=== PATIENT | female | born 1990 | race Caucasian/White ===

== ENCOUNTER 2022-08-20 12:12 | Emergency (ER) | payer MEDICAID, SELFPAY ==
[2022-08-20 12:13] VITALS: BP 108/69; PULSE 89; RESP 14; TEMP 36.8; O2SAT 98; BMI 23.1
--- NOTE | 2022-08-20 12:33 | EKG12_ITS ---
Test Reason : PALPS Blood Pressure : / mmHG Vent. Rate : 084 BPM Atrial Rate : 084 BPM P-R Int : 130 ms QRS Dur : 084 ms QT Int : 366 ms P-R-T Axes : 014 022 019 degrees QTc Int : 432 ms Normal sinus rhythm Normal ECG Confirmed by JUANCARLOS POOLE, MARKO ([id number]), newspaper editor DARWIN CARREON ([id number]) on 08/22/2022 8:36:15 AM Referred By: Confirmed By:MARKO BAUER MD
[2022-08-20 12:52] VITALS: O2SAT 97
[2022-08-20 12:59] LABS: Bacteria 0 SEEN /hpf (None Seen); Mucous, Urine 0 SEEN /hpf (<or=2+); Red Blood Cells-Urine 0 SEEN /hpf (0-5); Squamous Epithelial Cells - UA 0 SEEN /hpf (5-10)
[2022-08-20 13:00] LABS: Absolute Lymphocyte Count 1.91 X10^3/uL (0.83-4.51); Absolute Neutrophil Count 8.6 X10^3/uL (2.0-7.7); Basophil# 0.03 X10^3/uL; Basophil% 0.3 % (0-1); Color, Urine Yellow (Yellow); Eosinophil# 0.06 X10^3/uL; Eosinophils% 0.5 % (0-5); Glucose, Dipstick Normal (Normal); Hematocrit 31.9 % (37-47); Hemoglobin 11.1 g/dL (12.0-15.0); Ketone-Dipstick Negative (Negative); Leukocyte Esterase-Dipstick 25 /ul (Negative); Lymphocyte # 1.91 X10^3/ul (0.83-4.51); Lymphocyte % 16.6 % (19-41); Mean Corp Hgb Conc 34.8 g/dL (32-36); Mean Corpuscular Hgb 32.8 pg (27.0-32.0); Mean Corpuscular Volume 94.4 fL (81-99); Monocyte# 0.74 X10^3/uL; Monocyte% 6.4 % (0-10); NRBC Flagged by Analyzer 0 % (0-5); Neutrophil # 8.55 X10^3/uL (2.7-7.7); Neutrophil % 74.2 % (47-70); Nitrite-Dipstick Negative (Negative); Occult Blood-Urine Negative /ul (Negative); Platelet Count 252 K/mm3 (150-450); Protein-Dipstick Negative (Negative); RBC Distribution Width CV 13.2 % (11.6-14.6); RBC Distribution Width SD 45.5 fl (35.1-43.9); Red Blood Count 3.38 M/mm3 (4.2-5.4); Urine Bilirubin Dipstick Negative (Negative); Urine Clarity Clear (Clear); Urine Urobilinogen Normal (Normal); Urine pH 6.5 (5.0 - 8.0); White Blood Count 11.5 K/mm3 (4.4-11.0)
--- NOTE | 2022-08-20 13:05 | RAD_ITS ---
STUDY: X-RAY CHEST REASON FOR EXAM: Female, 32 years old. Sob TECHNIQUE: Single AP portable view of the chest. COMPARISON: None. FINDINGS: Allowing formation of shadows is a hazy appearance of the lung bases. There is no demonstrated pleural abnormality. Normal size heart. Normal mediastinum and renee. Normal visualized pulmonary arteries. Normal visualized aortic arch and descending thoracic aorta. Normal visualized thoracic spine. Normal visualized ribs, clavicles, and shoulders. There is no demonstrated abnormality of the visualized soft tissue structures of the upper abdomen. RAD/Chest 1 View (Portable) IMPRESSION: Probable summation of shadows in both lung bases with breast tissue. Could consider PA and lateral film of the chest if appropriate. Electronically Signed: Tala Camacho MD at 14:13 EDT ,
[2022-08-20 13:09] LABS: White Blood Cells 0-5 SEEN /hpf (0-5)
[2022-08-20 13:18] LABS: ALB/GLOB Ratio 0.8 RATIO (0.9-2.4); AST(SGOT) 13 U/L (15-37); Alanine Aminotransfer ALT/SGPT 17 U/L (13-56); Albumin, Serum 2.9 g/dL (3.2-5.0); Alkaline Phosphatase 80 U/L (45-117); Anion Gap 7 (5-15); BUN 8 mg/dL (7-18); BUN/Creat Ratio 17.2 RATIO (10-20); Calcium,Total 9.3 mg/dL (8.5-10.1); Chloride 106 mmol/L (98-107); Creatinine, Serum 0.46 mg/dL (0.55-1.02); EST Glomerular Filtration Rate 167 mL/min (>60); Est Glom Filt Rate - Afr Amer 203 mL/min (>60); Estimated Creatinine Clearance 160.91 ml/min; Globulin 3.8 g/dL (2.2-4.2); Glucose 94 mg/dL (74-106); Potassium 3.7 mmol/L (3.5-5.1); Protein, Total 6.7 g/dL (6.4-8.2); Sodium Level 136 mmol/L (136-145); Troponin-I HS 4 pg/mL (3.0-54.0)
--- NOTE | 2022-08-20 13:44 | EDS_ITS ---
HPI History of Present Illness Chief Complaint: Shortness of Breath Narrative Narrative: Patient presents with cough congestion rhinorrhea for the past few days, she feels like she has some palpitations from time to time. She has not noticed a fever. She does not have any pleuritic component. No back pain or tearing sensation, no lower extremity edema or calf pain. She is 20 weeks . She she has movement, she has no urinary symptoms. PFSH PFSH Medical History no medical history Allergy/AdvReac Type Severity Reaction Status Date / Time No Known Allergies Allergy Verified 08/20/22 12:13 Surgical History no surgical history Social History Smoking Status: Never smoker ROS ROS ED ROS Narrative Past medical history: Reviewed Medications: Reviewed Social history: Noncontributory Review of systems: All systems negative except as indicated General: No fever Eyes: No visual changes ENT: Upper airway congestion and rhinorrhea as in HPI Neck: No neck pain Cardiovascular: No chest pain. Some palpitations intermittently. Respiratory: No cough she does not have a difficulty breathing she tells me sometimes it is hard to catch her breath but at this time she has no dyspnea, when she exerts herself it is no worse. Gastrointestinal: No abdominal pain, nausea vomiting or diarrhea Genitourinary: No dysuria Musculoskeletal: Denies myalgias no difficulty with ambulation Skin: No rash Neurological: No memory loss, confusion or any focal weakness Psych: No recent behavioral changes Hematologic: No easy bleeding or easy bruising EXAM Physical Exam Narrative Exam Narrative: Physical exam General: Well nourished, Well developed, No Acute Distress Head: Normocephalic, Atraumatic Eyes: Conjunctiva not pale ENT: Moist mucous membranes. There is rhinorrhea and upper airway congestion. Normal posterior oropharynx. Neck: Supple, Nontender, No lymphadenopathy Cardiovascular: Regular rate, Regular rhythm Respiratory: No distress, CTA bilaterally Abdomen: Soft, gravid to about the umbilicus. Nontender Back: Nontender, Normal Inspection. Negative for: CVA tenderness Extremities: Nontender, No edema Skin: Normal color, No rash Neurological: Alert, Normal Strength, Normal Sensation Psychological: Normal affect Const Vital Signs: 08/20/22 12:13 08/20/22 12:52 Temperature 98.2 F Temperature Source Temporal Pulse Rate 89 Respiratory Rate 14 Respiratory Effort Normal Non-Labored Short of Breath Respiratory Depth Normal Respiratory Pattern Normal Blood Pressure 108/69 Blood Pressure Mean 82 Pulse Ox 98 Oxygen Delivery Method Room Air Room Air [facility] Lab Data Labs: Laboratory Results - last 24 hr 08/20/22 08/20/22 08/20/22 12:45 12:45 12:45 WBC 11.5 H RBC 3.38 L Hgb 11.1 L Hct 31.9 L MCV 94.4 MCH 32.8 H MCHC 34.8 RDW Std Deviation 45.5 H RDW Coeff of Bob 13.2 Plt Count 252 MPV 10.0 Immature Gran % (Auto) 2.000 H Neut % (Auto) 74.2 H Lymph % (Auto) 16.6 L [place] % (Auto) 6.4 Eos % (Auto) 0.5 Baso % (Auto) 0.3 Absolute Neuts (auto) 8.6 H Absolute Lymphs (auto) 1.91 Nucleated RBC % 0 Sodium 136 Potassium 3.7 Chloride 106 Carbon Dioxide 23.0 Anion Gap 7 BUN 8 Creatinine 0.46 L Estim Creat Clear Calc 160.91 Est GFR (MDRD) Af Amer 203 Est GFR (MDRD) Non-Af 167 BUN/Creatinine Ratio 17.2 Glucose 94 Calcium 9.3 Total Bilirubin 0.10 L AST 13 L ALT 17 Alkaline Phosphatase 80 Troponin I High Sens 4 Total Protein 6.7 Albumin 2.9 L Globulin 3.8 Albumin/Globulin Ratio 0.8 L Urine Color Yellow Urine Clarity Clear Urine pH 6.5 Ur Specific [place] 1.010 Urine Protein Negative Urine Glucose (UA) Normal Urine Ketones Negative Urine Occult Blood Negative Urine Nitrite Negative Urine Bilirubin Negative Urine Urobilinogen Normal Ur Leukocyte Esterase 25 H Urine RBC 0 SEEN Urine WBC 0-5 SEEN Ur Squamous Epith Cells 0 SEEN Urine Bacteria 0 SEEN Urine Mucus 0 SEEN Radiography Diagnostic Testing: Chest x-ray 1 view interpreted by me as negative EKG Initial EKG: Comments: Normal sinus rhythm with a rate of 84. Normal NM and QTc intervals. No ischemic changes. Interpreted by emergency Dr. Treatment and Re-Evaluation Narrative: Patient's work-up is unremarkable. She appears well she has no signs or symptoms of thromboembolic disease troponins negative I believe she is stable for discharge. If any changes she is to return, she likely has an upper respiratory infection but her COVID was negative. Discharge Plan Triage Chief Complaint: Shortness of Breath ED Provider: Leander Duckworth Dx/Rx/DC Orders Clinical Impression: Acute upper respiratory infection, Cough, Palpitation, Second trimester p regnancy Instructions: ED URI, Viral, No Abx (Adult) Primary Care Provider: Care Physician,No Primary Referrals: Mini Frazier DO [Med Staff - Multimedia Manager] - 3-5 Days Care Physician,No Primary [Primary Care Provider] - Disposition Disposition: Home, Self Care
[2022-08-20 13:52] VITALS: PULSE 84
== END 2022-08-20 13:52 | disposition home or self-care (01) ==
PROVIDERS: Emergency Provider Emergency Medicine; Visit Provider Emergency Medicine
DX: O99.512 Diseases of the respiratory system complicating pregnancy, second trimester (principal); R00.2 Palpitations; J06.9 Acute upper respiratory infection, unspecified; Z3A.20 20 weeks gestation of pregnancy
CPT/HCPCS: 71045; 80053; 81001; 84484; 85025; 87811; 93005; 99283; A4216

== ENCOUNTER 2022-11-10 18:05 | Outpatient (CLI) | payer MEDICAID, SELFPAY ==
[2022-11-10 18:17] VITALS: BMI 27.1
[2022-11-10 18:19] VITALS: PULSE 97; O2SAT 97
[2022-11-10 18:24] VITALS: BP 107/64; PULSE 105; TEMP 36.7
[2022-11-10 18:38] LABS: Color, Urine Yellow (Yellow); Glucose, Dipstick Normal (Normal); Ketone-Dipstick Negative (Negative); Leukocyte Esterase-Dipstick Negative /ul (Negative); Nitrite-Dipstick Negative (Negative); Occult Blood-Urine Negative /ul (Negative); Protein-Dipstick Negative (Negative); Urine Bilirubin Dipstick Negative (Negative); Urine Clarity Clear (Clear); Urine Urobilinogen Normal (Normal); Urine pH 6.5 (5.0 - 8.0)
[2022-11-10 18:40] VITALS: BP 106/59; PULSE 96
[2022-11-10 18:45] LABS: Hematocrit 29.3 % (37-47); Hemoglobin 10.5 g/dL (12.0-15.0); Mean Corp Hgb Conc 35.8 g/dL (32-36); Mean Corpuscular Hgb 33.7 pg (27.0-32.0); Mean Corpuscular Volume 93.9 fL (81-99); Mean Platelet Vol. 9.9 fl (6.2-12.0); Platelet Count 254 K/mm3 (150-450); RBC Distribution Width CV 13.3 % (11.6-14.6); RBC Distribution Width SD 45.5 fl (35.1-43.9); Red Blood Count 3.12 M/mm3 (4.2-5.4); White Blood Count 12.5 K/mm3 (4.4-11.0)
[2022-11-10] MEDS: DiphenhydrAMINE 25 MG Capsule PO (18:48)
[2022-11-10] MEDS: Metoclopramide 5 MG TABLET PO (18:48)
[2022-11-10 18:51] LABS: AST(SGOT) 10 U/L (15-37); Alanine Aminotransfer ALT/SGPT 13 U/L (13-56); Creatinine, Serum 0.47 mg/dL (0.55-1.02); EST Glomerular Filtration Rate 164 mL/min (>60); Est Glom Filt Rate - Afr Amer 199 mL/min (>60); Estimated Creatinine Clearance 157.49 ml/min; Uric Acid 3.5 mg/dL (2.6-6.0)
--- NOTE | 2022-11-10 18:53 | OB.TRI.NOTE ---
HPI - General HPI Narrative NISHA FISHER, is a 32 F at 32.6 weeks gestation who presents to triage with headache. She describes headache that starts in front and wraps around to back lower head since yesterday. She has taken Tylenol PO x 2 with no relief. Denies vision changes, swelling, or RUQ pain. Maternal Data Information ROLF Calculator Estimated Delivery Date Method Current WG Current Estimate 12/30/22 Manual 32w 6d PFSH PFSH Home Medications 1 tab PO/SL DAILY 11/10/22 [History Last Taken 11/09/22 21:00] iron 325 mg PO/SL QODAY 11/10/22 [History Last Taken 11/09/22 21:00] Allergy/AdvReac Type Severity Reaction Status Date / Time No Known Allergies Allergy Verified 11/10/22 18:25 Social History Smoking Status: Never smoker ROS Eyes Eyes: Denies blurry vision Cardiovascular Cardiovascular: Reports none; Denies chest pain at rest, chest pain with activity or dizziness Respiratory/Chest Respiratory/Chest: Denies cough or dyspnea Gastrointestinal Gastrointestinal: Reports none and other; Denies diarrhea or vomiting Genitourinary Genitourinary: Denies dysuria Musculoskeletal Musculoskeletal: Reports none Integumentary Integumentary: Reports none; Denies rash Neurologic Neurologic: Reports headache(s); Denies dizziness or other visual disturbances Psychiatric Psychiatric: Reports none Physical Exam Const alert and no apparent distress General Appearance: cooperative Orientation / Consciousness: awake Exam Limitations: no limitations HEENT normocephalic Eyes General Eye: normal appearance of both eyes Neck full ROM Chest inspection of chest normal Resp normal respiratory effort and normal air movement Effort and Inspection: symmetric chest movement Auscultation: clear to auscultation bilaterally Cardio regular rate GI soft to palpation, non-tender and non-distended Inspection: and other Back/Spine normal ROM Extremity full ROM, normal capillary refill and no calf tenderness Skin no rashes or lesions noted Neuro oriented x3 and CN's II-XII intact bilaterally Psych mental status grossly normal Assessment & Plan (1) Headache: (2) 32 weeks gestation of : PLAN: Plan BP 113/69 PIH labs normal Benadryl 25 mg PO x 1 Reglan 5 mg PO x 1 UA- negative NST reactive- TOCO- initially showing contractions every 2-3 minutes that palpate mild/ Patient denies feeling any contractions CE- /-3- remained unchanged Contractions resolved after oral hydration Discussed importance of fluid intake Headache lessened after medications and hydration D/C home with follow up in office
[2022-11-10 18:54] VITALS: BP 111/70; PULSE 100
[2022-11-10 18:59] LABS: Protein, Urine (Random) < 6.0 mg/dL (<11.9)
[2022-11-10 19:09] VITALS: BP 113/72; PULSE 96
[2022-11-10 19:24] VITALS: BP 113/69; PULSE 92
== END 2022-11-10 20:00 | disposition home or self-care (01) ==
LOC: WPOUT 18:16 → WP 18:17
PROVIDERS: Referring Provider Advanced Practice Midwife; Visit Provider Advanced Practice Midwife
DX: O60.03 Preterm labor without delivery, third trimester (principal); R51.9 Headache, unspecified; Z3A.32 32 weeks gestation of pregnancy
CPT/HCPCS: 59025; 59050; 81002; 82565; 82570; 84156; 84450; 84460; 84550; 85027; 87086; 99221; G0378

== ENCOUNTER 2022-11-22 20:35 | Outpatient (CLI) | payer MEDICAID, SELFPAY ==
[2022-11-22 20:43] VITALS: BP 111/66; PULSE 107; PULSE 126; O2SAT 99
[2022-11-22 20:44] VITALS: TEMP 36.6
[2022-11-22 20:46] VITALS: BMI 27.1
[2022-11-22 20:48] VITALS: PULSE 104; O2SAT 98
[2022-11-22 20:53] VITALS: PULSE 109; O2SAT 98
--- NOTE | 2022-11-23 07:26 | OB.TRI.NOTE ---
HPI - General General Date of Admission: 11/22/22 Date of Service: 11/22/22 Chief Complaint: cramping HPI Narrative NISHA FISHER, is a 32 F who presents complaining of possible contractions and cramping. She denies any vaginal bleeding or leaking of fluid. She denied any fevers or chills. Maternal Data Information ROLF Calculator Estimated Delivery Date Method Current WG Current Estimate 12/30/22 Manual 34w 5d PFSH PFSH Home Medications 1 tab PO/SL DAILY 11/10/22 [History Last Taken 11/21/22] iron 325 mg PO/SL QODAY anemia 11/10/22 [History Last Taken 11/21/22] Allergy/AdvReac Type Severity Reaction Status Date / Time No Known Allergies Allergy Verified 11/10/22 18:25 Social History Smoking Status: Never smoker NST FHR Rate Baby A Baseline: 125 Variability:: Moderate Accelerations:: 15 x 15 Decelerations:: None NST Reactive:: Yes FHR Category:: Category I Uterine Activity:: Irregular contractions Assessment & Plan (1) 34 weeks gestation of : PLAN: Patient with some irregular contractions, no evidence of labor. Diagnosis threatened labor. Patient was given labor precautions. Follow-up in the office as scheduled or return as needed. Patient was comfortable with this plan
== END 2022-11-22 22:00 | disposition home or self-care (01) ==
LOC: WPOUT 20:37 → WP 21:53
PROVIDERS: Visit Provider Obstetrics & Gynecology
DX: O47.03 False labor before 37 completed weeks of gestation, third trimester (principal); Z3A.34 34 weeks gestation of pregnancy
CPT/HCPCS: 59025; 59050; 99221; G0378

== ENCOUNTER 2022-12-23 06:52 | Inpatient (IN) | payer MEDICAID, SELFPAY ==
[2022-12-23] VITALS (55 sets, daily range): BP systolic 98–125; BP diastolic 52–74; PULSE 76–120; TEMP 36.4–36.7; O2SAT 97–100; BMI 28.3
[2022-12-23 08:19] LABS: Absolute Lymphocyte Count 1.83 X10^3/uL (0.83-4.51); Absolute Neutrophil Count 6.9 X10^3/uL (2.0-7.7); Basophil# 0.05 X10^3/uL; Basophil% 0.5 % (0-1); Eosinophil# 0.05 X10^3/uL; Eosinophils% 0.5 % (0-5); Hematocrit 30.4 % (37-47); Hemoglobin 10.7 g/dL (12.0-15.0); Lymphocyte # 1.83 X10^3/ul (0.83-4.51); Lymphocyte % 18.3 % (19-41); Mean Corp Hgb Conc 35.2 g/dL (32-36); Mean Corpuscular Hgb 33.1 pg (27.0-32.0); Mean Corpuscular Volume 94.1 fL (81-99); Mean Platelet Vol. 10.3 fl (6.2-12.0); Monocyte# 0.77 X10^3/uL; Monocyte% 7.7 % (0-10); NRBC Flagged by Analyzer 0 % (0-5); Neutrophil # 6.89 X10^3/uL (2.7-7.7); Neutrophil % 69.1 % (47-70); Platelet Count 247 K/mm3 (150-450); RBC Distribution Width CV 13.9 % (11.6-14.6); RBC Distribution Width SD 47.8 fl (35.1-43.9); Red Blood Count 3.23 M/mm3 (4.2-5.4)
[2022-12-23] MEDS: Lactated Ringers 1,000 ML 50 ML IV (08:24)
[2022-12-23] MEDS: Oxytocin 15 Units/NS 250ml 15 UNITS/250 ML IV.SOLN 2 UNITS IV (08:25)
--- NOTE | 2022-12-23 08:36 | HP.PCM.OB_ITS ---
HPI - General General Date of Admission: 12/23/22 HPI Narrative NISHA FISHER, is a 32 F at 39 weeks who presents for an elective induction of labor. Maternal Data Information ROLF Calculator Estimated Delivery Date Method Current WG Current Estimate 12/30/22 Manual 39w 0d PFSH PFSH Home Medications 1 tab PO/SL DAILY 11/10/22 [History Last Taken 12/21/22 19:00] iron 325 mg PO/SL QODAY anemia 11/10/22 [History Last Taken 12/22/22 19:00] Allergy/AdvReac Type Severity Reaction Status Date / Time No Known Allergies Allergy Verified 11/10/22 18:25 Social History Smoking Status: Former smoker History Elective abortions Hx Para 1 Spontaneous abortions Hx # Term Pregnancies Ectopic pregnancies Hx # Pregnancies Multiple births # of living children Visit Details OB Flowsheet Initial Weight: Not Recorded Date -?-?-?-?-?-?-?-?-?-?-?-?- EGA Weight BP Urine Prot -?-?-?-?-?-?-?-?-?-?-?-?- Glucose FHR FuHt Pres Dilation -?-?-?-?-?-?-?-?-?-?-?-?- Effaced St Visit Note 12/23/22 -?-?-?-?-?-?-?-?-?-?-?-?- 39w 0d 170 lb 8 oz 111/67 -?-?-?-?-?-?-?-?-?-?-?-?- -?-?-?-?-?-?-?-?-?-?-?-?- ROS Eyes Eyes: Denies blurry vision, change in vision or spots in vision ENT HEENT: Denies dizziness or headache(s) Cardiovascular Cardiovascular: Denies abdominal pain, chest pain or dyspnea Respiratory/Chest Respiratory/Chest: Denies cough, dyspnea, shortness of breath at rest or sh ortness of breath with exertion Gastrointestinal Gastrointestinal: Denies abdominal pain, diarrhea or vomiting Genitourinary Genitourinary: Denies change in urinary stream, difficulty urinating or dysuria Musculoskeletal Musculoskeletal: Reports none Integumentary Integumentary: Denies rash Neurologic Neurologic: Denies dizziness, headache(s), memory loss or weakness Psychiatric Psychiatric: Reports none Vital Signs Vital Signs Vital Signs: 12/23/22 08:14 12/23/22 08:14 12/23/22 08:15 Pulse Rate 84 88 Blood Pressure 111/67 BP Systolic 111 BP Diastolic 67 Pulse Ox 12/23/22 08:15 Pulse Rate Blood Pressure BP Systolic BP Diastolic Pulse Ox 99 Weight Weight: 170 lb 8 oz Body Mass Index (BMI) 28.3 Physical Exam Const alert, oriented x3 and no apparent distress General Appearance: cooperative Orientation / Consciousness: awake Exam Limitations: no limitations HEENT normocephalic Head and Scalp: normal to inspection Eyes General Eye: normal appearance of both eyes Neck full ROM and no lymphadenopathy Lymph Lymphatic: no lymphadenopathy noted Chest inspection of chest normal Resp normal respiratory effort, normal air movement and clear to auscultation bilaterally Effort and Inspection: able to speak in complete sentences and symmetric chest movement Cardio regular rate and regular rhythm GI normal to inspection, nondistended, normoactive bowel sounds Manual OB Exam: presentation cephalic Back/Spine normal ROM Extremity full ROM and no calf tenderness Skin no rashes or lesions noted General Skin Exam: no breakdown Neuro oriented x3 and CN's II-XII intact bilaterally Psych mental status grossly normal and thought process normal Labs Labs Labs: Blood Type Pending Antibody Screen Pending Hct 30.4 % (37-47) L Hgb 10.7 g/dL (12.0-15.0) L Syphilis Total Ab Pending GBS negative Assessment & Plan (1) 39 weeks gestation of : (2) Encounter for induction of labor: (3) Anemia affecting : (4) History of depression: PLAN: Plan CE- /-2 Admit to labor and delivery Routine labs Start IV fluids and run per orders GBS negative Start Pitocin IV 2mu/min and increase per orders Epidural when indicated Anticipate Dr. Anguiano notified of admission and is collaborating physician
[2022-12-23 08:55] LABS: Syphilis Antibodies Non-reactive
[2022-12-23] MEDS: LACTATED RINGERS 500 ML 999 ML IV (11:02)
--- NOTE | 2022-12-23 12:30 | PCM.PN.BLA ---
Progress Note Patient seen at bedside. Comfortable with epidural anesthesia. Assessment & Plan Assessment/Plan (1) Encounter for induction of labor: (2) 39 weeks gestation of : PLAN: Plan CE- 4.5/70/-2 AROM for moderate amount of clear fluid IUPC placed Continue Pitocin IV and increase per policy Anticipate
[2022-12-23] MEDS: LACTATED RINGERS 500 ML 200 ML IV (14:53)
[2022-12-23] MEDS: fentaNYL-bupivacaine (epidural) 100 ML BAG EPIDURAL (16:12)
--- NOTE | 2022-12-23 16:46 | PCM.PN.BLA ---
Progress Note Patient seen at bedside. Remains comfortable with epidural. Feeling some pressure with contractions at times. Physical Exam Const alert and no apparent distress General Appearance: cooperative and comfortable Exam Limitations: no limitations HEENT normocephalic Eyes General Eye: normal appearance of both eyes Neck full ROM General: normal visual inspection Chest Chest: symmetrical chest wall rise Resp normal respiratory effort and normal air movement Effort and Inspection: symmetric chest movement Auscultation: clear to auscultation bilaterally Cardio regular rate and regular rhythm GI normal to inspection, nondistended, normoactive bowel sounds Back/Spine normal ROM Extremity full ROM and no calf tenderness General Extremity: normal exam except as noted Skin no rashes or lesions noted Neuro CN's II-XII intact bilaterally Psych mental status grossly normal Assessment & Plan Assessment/Plan (1) Encounter for induction of labor: (2) 39 weeks gestation of : PLAN: Plan CE- 9/100/-1 Repositioning to hands and knees to assist with station Continue Pitocin IV per policy Anticipate
--- NOTE | 2022-12-23 17:46 | OP.PCM_ITS ---
Assessment & Plan (1) (spontaneous vaginal delivery): (2) Laceration, obstetrical, first degree: (3) Anemia affecting : Maternal Data Information ROLF Calculator Estimated Delivery Date Method Current WG Current Estimate 12/30/22 Manual 39w 0d Vaginal Delivery Maternal Presentation Maternal Presentation: Elective Induction Type of Induction: Pitocin and Amniotomy Operative Information Date of Procedure: 12/23/22 Pre-Operative Diagnosis: Term gestation, elective induction of labor Post-Operative Diagnosis: , live female infant Surgery / Procedure Performed: Spontaneous Vaginal Delivery Type of Anesthesia: Epidural Drain: Patel to straight drain Estimated Blood Loss: 200 Time of Delivery: 17:26 Findings Description of Procedure: Called to patient's room for delivery. With minimal maternal effort, head delivered over intact perineum followed immediately by anterior shoulder and remainder of infant's body without traction. Vigorous female placed on maternal abdomen and attended to by nursing staff. Pitocin IV started for active manage ment of the third stage of labor. Cord clamped and cut by FOB after 3 minute delay. Cord blood collected from 3 vessel cord. Infant placed immediately skin to skin with patient. Placenta delivered spontaneously and intact. First degree vaginal laceration repaired in usual fashion using 3-0 Rapid. Hemostasis obtained. Uterus firm 2 below U. EBL [address] cc. APGARS 7/9. Dr. Anguiano notified of delivery. Presentation: Vertex and GRETCHEN Amniotic Membrane Rupture Type: Artificial Time of Membrane Rupture: 1223 Amniotic Fluid Description: Clear Placental Delivery Description: Spontaneous Placenta Disposition: [facility] Cord Vessel Description: 3 Vessels Cord Entanglement: None A Gender: Female (1 minute): 7 (5 minute): 9 Delayed Cord Clamping: Yes Post Vaginal Delivery Medications Given After Delivery: IV Pitocin Episiotomy Description: None Laceration: 1st degree Complication Complications: None
[2022-12-23] MEDS: Oxytocin 15 Units/NS 250ml 15 UNITS/250 ML IV.SOLN 83 UNITS IV (18:15)
[2022-12-23] MEDS: Naproxen 500 MG Tablet PO (20:54)
[2022-12-23] MEDS: Benzocaine/Lanolin/Aloe Vera 1 SPRAY EACH TOPICAL (20:54)
[2022-12-23] MEDS: Acetaminophen 500 MG Tablet 1000 MG PO (20:54)
[2022-12-24] VITALS (15 sets, daily range): BP systolic 93–106; BP diastolic 56–79; PULSE 85–97; RESP 14–16; TEMP 36.1–36.8; O2SAT 97–98
[2022-12-24] MEDS: Acetaminophen 500 MG Tablet 1000 MG PO (03:56)
--- NOTE | 2022-12-24 08:20 | PN.OBGYN_ITS ---
Subjective Subjective Patient seen at bedside. during visit. Using jack. Ambulating and voiding without difficulty. Lochia decreasing. Denies any dizziness, headache, CP or SOB. Desires discharge tonight if infant's bilirubin level is stable. Objective Data Objective Data Vital Signs: Vital Signs Temp Pulse Resp BP Pulse Ox O2 Del Method 96.9 F L 90 16 103/79 98 Room Air 12/24/22 04:48 12/24/22 08:15 12/24/22 04:48 12/24/22 08:15 12/23/22 18:12 12/24/22 04:48 Oxygen Delivery Method Room Air Weight: 170 lb 8 oz Body Mass Index (BMI) 28.3 Intake & Output: Intake and Output for Last 24 Hours 12/22/22 12/23/22 12/24/22 23:59 23:59 23:59 Intake Total 2900.00 / 2900.00 Output Total 200 / 200 600 / 600 Balance 2700.00 / 2700.00 -600 / -600 Lab / Micro Data Result Diagrams: 12/23/22 07:55 Labs: Laboratory Results - last 24 hr 12/23/22 07:55: WBC 10.0, RBC 3.23 L, Hgb 10.7 L, Hct 30.4 L, MCV 94.1, MCH 33.1 H, MCHC 35.2, RDW Std Deviation 47.8 H, RDW Coeff of Bob 13.9, Plt Count 247, MPV 10.3, Immature Gran % (Auto) 3.900 H, Neut % (Auto) 69.1, Lymph % (Auto) 18.3 L, [place] % (Auto) 7.7, Eos % (Auto) 0.5, Baso % (Auto) 0.5, Absolute Neuts (auto) 6.9, Absolute Lymphs (auto) 1.83, Nucleated RBC % 0 12/23/22 07:55: Blood Type O POSITIVE, Antibody Screen NEGATIVE 12/23/22 07:55: Syphilis Total Ab Non-reactive ROS Eyes Eyes: Denies blurry vision, change in vision or spots in vision ENT HEENT: Denies dizziness or headache(s) Cardiovascular Cardiovascular: Denies abdominal pain, chest pain or dyspnea Respiratory/Chest Respiratory/Chest: Denies cough, dyspnea, shortness of breath at rest or shortness of breath with exertion Gastrointestinal Gastrointestinal: Denies abdominal pain, diarrhea or vomiting Genitourinary Genitourinary: Denies change in urinary stream, difficulty urinating or dysuria Musculoskeletal Musculoskeletal: Reports none Integumentary Integumentary: Denies rash Neurologic Neurologic: Denies dizziness, headache(s), memory loss or weakness Physical Exam Const alert and no apparent distress General Appearance: cooperative and comfortable Exam Limitations: no limitations HEENT normocephalic Eyes General Eye: normal appearance of both eyes Neck full ROM General: normal visual inspection Chest Chest: symmetrical chest wall rise Resp normal respiratory effort and normal air movement Effort and Inspection: symmetric chest movement Auscultation: clear to auscultation bilaterally Cardio regular rate and regular rhythm GI normal to inspection, nondistended, normoactive bowel sounds Back/Spine normal ROM Extremity full ROM and no calf tenderness General Extremity: normal exam except as noted Skin no rashes or lesions noted Neuro CN's II-XII intact bilaterally Psych mental status grossly normal Assessment & Plan (1) Laceration, obstetrical, first degree: (2) (spontaneous vaginal delivery): PLAN: Plan PPD 1 Routine care support D/C home with follow up in office
--- NOTE | 2022-12-24 08:24 | DCINST_ITS ---
Discharge Instructions Diet Discharge Diet: No restrictions Activity Discharge Activity: Return to Normal Activity, May Shower and May Take a Tub Bath May resume sexual activity in: 4-6 weeks Weight Bearing Status: Weight bearing as tolerated Dressing / Incision Call your doctor if you observe: Inability to urinate, Using more than 1 pad per hour, Shortness of breath, Dizziness, Swelling in the ankles, Chest pain, Calf discomfort and Uncontrolled pain Follow Up Care When: Within 10 days Test Results: Test results from this visit will be discussed in further detail at your follow- up appointment, if applicable. Discharge Plan Admission Admit Date/Time: 12/23/22 06:52 Primary Reason for Your Visit: Labor and Delivery Attending Provider: Rin Solares Primary Care Provider: Care Physician,Gayla Primary Discharge Orders/Prescriptions Prescriptions: No Action 1 tab PO/SL DAILY iron 325 mg PO/SL QODAY Referrals / Follow Up: Care Physician,No Primary [Primary Care Provider] - Disposition Disposition (needs filled in before D/C Order can be placed): Home, Self Care
[2022-12-24] MEDS: Ferrous Sulfate 325 MG Tablet PO (10:00)
[2022-12-24] MEDS: Prenatal Vits Tablet 1 TABLET PO (12:19)
[2022-12-24] MEDS: Naproxen 500 MG Tablet PO (12:21)
[2022-12-25] VITALS (8 sets, daily range): BP systolic 97–108; BP diastolic 61–68; PULSE 79–105; RESP 15–16; TEMP 36.3–36.4; O2SAT 96–99
--- NOTE | 2022-12-25 08:07 | DCINST_ITS ---
Discharge Instructions Diet Discharge Diet: No restrictions Activity Discharge Activity: No Restrictions, May Shower and May Take a Tub Bath May resume sexual activity in: 4-6 weeks Weight Bearing Status: Weight bearing as tolerated Dressing / Incision Call your doctor if you observe: Inability to urinate, Using more than 1 pad per hour, Shortness of breath, Dizziness, Swelling in the ankles, Chest pain, Calf discomfort and Uncontrolled pain Follow Up Care Please Follow Up With: Rin Solares CNM When: within 2 weeks or sooner if needed Test Results: Test results from this visit will be discussed in further detail at your follow- up appointment, if applicable. Discharge Plan Admission Admit Date/Time: 12/23/22 06:52 Primary Reason for Your Visit: Labor and Delivery Attending Provider: Rin Solares Primary Care Provider: Care Physician,Gayla Primary Discharge Orders/Prescriptions Prescriptions: No Action 1 tab PO/SL DAILY iron 325 mg PO/SL QODAY Referrals / Follow Up: Care Physician,No Primary [Primary Care Provider] - Disposition Disposition (needs filled in before D/C Order can be placed): Home, Self Care
--- NOTE | 2022-12-25 08:10 | PCM.PN.BLA ---
Progress Note Patient seen at bedside. Infant under bili lights. Ambulating and voiding without difficulty. Tearful. Stated no sleep last night. without support. Anticipates discharge home today. Physical Exam Const alert and no apparent distress General Appearance: cooperative and comfortable Exam Limitations: no limitations HEENT normocephalic Eyes General Eye: normal appearance of both eyes Neck full ROM General: normal visual inspection Chest Chest: symmetrical chest wall rise Resp normal respiratory effort and normal air movement Effort and Inspection: symmetric chest movement Auscultation: clear to auscultation bilaterally Cardio regular rate and regular rhythm GI normal to inspection, nondistended, normoactive bowel sounds Back/Spine normal ROM Extremity full ROM and no calf tenderness General Extremity: normal exam except as noted Skin no rashes or lesions noted Neuro CN's II-XII intact bilaterally Psych mental status grossly normal Assessment & Plan Assessment/Plan (1) (spontaneous vaginal delivery): (2) Laceration, obstetrical, first degree: PLAN: Plan PPD 2 Routine care support D/C home with follow up in office
[2022-12-25] MEDS: Prenatal Vits Tablet 1 TABLET PO (12:59)
[2022-12-25] MEDS: Ferrous Sulfate 325 MG Tablet PO (12:59)
== END 2022-12-25 17:21 | disposition home or self-care (01) | DRG 560 ==
PROVIDERS: Admitting Provider Advanced Practice Midwife; Referring Provider Advanced Practice Midwife; Visit Provider Advanced Practice Midwife
DX: O70.0 First degree perineal laceration during delivery (principal); Z37.0 Single live birth; D64.9 Anemia, unspecified; O99.02 Anemia complicating childbirth; Z87.891 Personal history of nicotine dependence; Z3A.39 39 weeks gestation of pregnancy; Z86.59 Personal history of other mental and behavioral disorders
CPT/HCPCS: 59025; 59050; 85025; 86780; 86850; 86900; 86901; 99221; J7120; G0378; J3490

== ENCOUNTER 2023-05-09 10:08 | Outpatient (RCR) | payer MEDICAID, SELFPAY ==
--- NOTE | 2023-05-09 10:10 | BH.SGPN.GN ---
Behaviors/Verbalizations/Mental Status: []Eye contact is good. Motor activity is appropriate. Appearance is casual. Speech is Appropriate. Mood is anxious and depressed. Affect is congruent. Thoughts are linear and logical. No evidence of psychosis. Client Response/Progress/Benefit: []Pt was an active participant in group discussions. Engaged and provided feedback along with peers on defining anxiety. Along with peers, pt worked to identify the benefits of anxiety. Participated during interactive discussion on how anxiety impacts one physically, cognitively, and behaviorally. Completed worksheet on how anxiety impacts pt physically, cognitively, and behaviorally. Pt shared physically pt experiences racing heart, severe restlessness, and racing thoughts. Benefited from increased insight into anxiety's benefits and how diagnosable anxiety impacts functioning. Will continue in IOP tx to prevent decompensation, improve daily functioning, and gain healthy coping skills. Narrative Note: []
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
--- NOTE | 2023-05-09 10:32 | BH.COMM ---
Communication Note Communication with Client Communication Note: Completed initial paperwork. [place] Suicide Screening was completed, pt presents as a low to moderate risk. Denies any hx or active SI. Reports passive thoughts of ?wanting to disappear? when overwhelmed. No significant changes since pre-admission screening. Consulted with Dr. Mc with plan to admits to [facility] with dx of F31.81
--- NOTE | 2023-05-09 10:33 | BH.MDN_ITS ---
Multi-Disciplinary Note Note 45-min Individual: Time Started:: 09:00 Date: 05/09/23 Purpose of session/treatment goals addressed:: To gather information on pt's current stressors, symptoms, triggers, and tx goals. Another goal was to build rapport and provide emotional support. Eye Contact:: Good (tearful at times throughout) Motor Activity:: Appropriate Appearance:: Casual Speech:: Appropriate Mood:: Anxious and Depressed Affect:: Congruent Thoughts:: Linear, Logical and No evidence of hallucinations/delusions noted Staff Interventions:: motivational interviewing, rapport building, strengths perspective and treatment planning Client Response:: Pt responded well to session, open to meeting with therapist. Pt reports she has had therapy once in the past, from [id number], but stopped due to becoming too distracted with family responsibilities and her mother?s grief when pt?s father . Shared that she has never had group therapy. Pt discussed her therapy goals which included: increase emotional regulation, reduce distortions and intrusive thoughts which reinforce anxiety sx, as well as better manage her anxiety and fears that something will happen to her children if she is not around them. Pt shared her symptoms have been worsening over the past 6 months, specifically since giving 4 months ago. Pt shared today is the first time she has let her boyfriend watch their child alone due to anxiety about spending time away form her. Described feeling ?trapped? in the house but experiences overwhelming anxiety when going anywhere. Pt is able to go places with her family but explained feeling incredibly uncomfortable and experiencing racing thoughts and panic sx when doing so. Discussed increased irritability since giving as well. Reports that she stays home with her and 5 year old son all day and does not want to take her anger out on them so ?everything builds and I explode on my boyfriend?. Reports remorse and guilt over this and fears her boyfriend will leave if she does not ?do something about this soon?. Shared she has no reason to believe this as her boyfriend is very supportive of pt and her mental health needs. Reports her mother is a primary support as well. Pt has a prior Bipolar II diagnosis and is not currently taking any medication for this. Only previous psych medications include an anti-depressant, but pt does not remember the name of this. Pt went on to describe a hx of intrusive thinking patterns and some checking behaviors. Pt receptive to learning more about her diagnosis, intrusive thought patterns, and emotion regulation skills while in IOP. Reports using smok ing as an excuse to step outside and take a break when overwhelmed but no longer does so since she quit smoking. Receptive of psychoeducation on grounding in anxiety management and emotion regulation and open to taking ?smoke breaks? throughout the remainder of the week where she steps outside to deep breath rather than smoke when overwhelmed at home. Pt stated she does not have outpatient counseling or psychiatry and will need these before discharge. Risks/Concerns:: Pt denies any suicidal ideations, plan, or intent as of 05/09/23. Reports passive thoughts of ?wanting to disappear? when overwhelmed. Pt denies HI. Pt is future oriented. Protective factors noted. Progress Toward Goals/Plan:: Pt's first day of IOP tx and pt reports feeling hopeful tx will aid in improving her mood and ability to self-regulate. Pt's symptoms are currently impacting her relationships and overall functioning. Pt stated she has anxious thoughts constantly which impacts pt's self-esteem and triggers fear of abandonment and that something will happed to her children. Pt endorses mood instability, irritability, anxiety, and a depressed mood. Pt will continue IOP tx to prevent decompensation, improve daily functioning, and increase ability to manage emotions. Time Stopped:: 09:47
--- NOTE | 2023-05-09 11:10 | BH.SGPN.GN ---
Behaviors/Verbalizations/Mental Status: []Pt alert and oriented, casually dressed and groomed. Eye contact good. Motor activity appropriate. Speech within normal limits. Affect congruent, mood anxious. Thoughts linear, logical, no signs of hallucinations or delusions. Client Response/Progress/Benefit: []Pt was an active participant in group discussion AEB providing contributions throughout group and listening attentively to others. Attentive during psychoeducation on mindfulness and ways to utilize mindfulness techniques to improve anxiety management. The group practiced deep breathing and the 5-senses during session. Engaged and attentive during group brainstorm of healthy anxiety reduction skills including thought challenging and behavioral changes. Appeared to benefit from practicing in the moment coping skills and increasing repertoire of anxiety management skills. Pt selected wanting to work on practicing grounding and mindfulness to improve ability to manage anxiety. Pt's first day in IOP. Pt will continue IOP tx to improve daily functioning, increase healthy coping skills, and prevent decompensation.
--- NOTE | 2023-05-10 09:20 | BH.NA ---
Physical Data Vital Signs Pulse Rate: 69 Blood Pressure: 126/86 Height/Weight Height: 1.68 m Weight:: 63.503 kg Weight in Pounds: 140.0 lbs Current Medication Compliance Medication Compliance Do you take your medication as prescribed?: Yes Nutritional History Appetite Nutritional Instructions: Describe your appetite:: Fair Additional nutritional information:: Client states her normal is eating snacks during the day and only 1 meal with her family in the evening. Client is 4 months post- so did have some weight loss regarding delivery. Functional Assessment Sleep Pattern Describe any problems with sleeping: Client states she sleeps about 3-4 hours per night, partially due to her 4 month old baby but also she has problems falling asleep. Sensory/Communication Assess Vision Problems Do you have any vision problems?: Glasses Communication Problems Do you have difficulty understanding what people are saying?: No Medical Problems/History Cardiac Conditions Cardiovascular: Other (See comments) (Client states she had heart palpitations during her second (and was monitored during ) but issues resolved after delivery.) Hematologic Conditions Hematologic: Anemia (anemia during ) Pain Assessment Do you have acute or chronic pain?: No Surgical History Surgical History Have you had any surgeries? If so, list type and date:: No Substance Abuse Substance Abuse Please describe substance abuse in the last 30 days:: Client reports very rare social alcohol use. Client states she is a former cigarette smoker and smoked for 10 years, but stopped 1 year ago when she got with her daughter. Client denies substance use. Client states she drinks 5-6 cups of coffee per day, and states she knows she needs to cut back on caffeine use. Mental Status Summary Mental Status Significant Findings/Observations on Appearance and Mood:: Client is alert and oriented x 4. Client is causally groomed with good hygiene. Client is cooperative with assessment. Client makes good eye contact. Client's voice has normal rate and volume. Client appears moderately anxious and becomes somewhat tearful when she talks about how anxious she is being away from her 4 month of daughter. Client has appropriate affect, but is tearful at times. Client makes logical associations and has normal processing. Client denies delusions/hallucinations. Client denies SI , but states at times she does wish I could just bury myself in a hole and disappear from my life but states she does not want to leave her kids and does not want to hurt herself. Suicide Assessment Suicidal Ideation Are you currently or have you been suicidal in the past?: No (no SI, but does state sometimes I just want to disappear) Physician Notification Past Psychiatric History MH Treatment Hx Past Psychiatric Medications:: Client states in 2019, she was on an antidepressant for about 2 weeks that upset her stomach but she does not remember the name Age of first mental health symptoms: Client states she started having feelings of anxiety/depression about 6 years ago, around age 27, when she was with her first son and he was diagnosed with heart concerns during . Client states she was told she was bipolar around age 28 when she went to therapy when her son was 1.5 years old. Describe (age, circumstance, etc) any past hospitalizations: None. Current providers for mental health treatment (counselor, psychiatrist, case finisher, etc.): previously went to counseling in 2019, currently not seeing counselor Fall Risk Assessment Age Age: Less than 60 Mental Status Mental Status: Willing & able to ask for assistance when needed Physical Status Physical Status: No problems Impairments Impairments: None Elimination Elimination: Continent AND independent Gait or Balance Gait or Balance: Walks independently Hx of Falls History of falls in the past 6 months: No known history Medications/Substances Medications/substances used within the past 24 hours or ordered to administer: None of the medications/substances list above Total Score Total Points:: 0 RN Summary of Impressions Impressions Recommendations Impressions: Psychiatric Issues: 1. Major depressive disorder, recurrent, severe without psychosis 2. PTSD 3. Generalized anxiety disorder Level of Care How do the client's current symptoms and functional deficits support need for this level of care?: Client was referred to [facility] by her EPITAXIAL REACTOR OPERATOR for depression and anxiety since having her baby 4 months ago. Client states she had depression and anxiety starting 6 years ago when she was with her son who was diagnosed with heart issues during , but client states her anxiety has gotten severely worse since having her daughter. Client states she fears the worst will happen to her daughter if she is not near her, to the point that she couldn't even take showers without being able to see her baby or she would feel panicked if her baby were in a different room than her. Client states coming to [facility] is the longest she has been away from her daughter since she was born 4 months ago. Client denies SI, but states she feels so down sometimes that she just wish I could bury myself in a hole to get away but does not want to be away from her children and does not want to . Client reports her biggest stressor is anxiety related to her infant and worrying something will happen to her. Client also reports her dad dying in 2019 and her feeling she needs to help take care of her mother have been a stressor as well. IOP will promote gains and prevent further decompensation while providing social support and skills training.
[2023-05-10 09:51] VITALS: BP 126/86; PULSE 69
--- NOTE | 2023-05-10 11:15 | BH.SGPN.GN ---
Behaviors/Verbalizations/Mental Status: []Client alert and oriented, casually dressed and groomed. Eye contact good. Motor activity appropriate. Speech within normal limits. Affect constricted, mood anxious and depressed. Thoughts linear, logical, no signs of hallucinations or delusions. Client Response/Progress/Benefit: []Client was an active participant throughout AEB contributing to group discussion and taking notes. Client provided input during small group discussion on strategies to combat each factor maintaining adverse nutritional cycles. Worked with group to identify ways to foster more mindful nutritional choices. Each group participant identified one small step they could take today to begin establishing mental wellness promoting nutritional choices. Client shared plans to?start with reducing her daily coffee intake to better limit overall caffeine consumption.?Appeared to benefit from gaining insight into mental wellness centered nutrition and identifying personal steps client can take to support own nutritional psychology. Recommended continued IOP tx to further increase healthy anxiety management, promote mood stability, and improve overall functioning.? Narrative Note: []
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
--- NOTE | 2023-05-10 13:48 | BH.DR.ITP ---
Initial Treatment Plan Patient Information Visit Information: ADMISSION DATE: EXPECTED LOS: 4-6 weeks Problems/Symptoms Problem #1:: Depression Symptom:: Sadness, hopelessness, worthlessness, irritability, anhedonia, biological disruption of sleep, decreased concentration, guilt Problem #2:: Anxiety Symptom:: Worry, rumination, panic attacks, flashbacks, reexperiencing, avoidance
--- NOTE | 2023-05-11 10:10 | BH.SGPN.GN ---
Behaviors/Verbalizations/Mental Status: [] Eye contact is good. Motor activity is appropriate. Appearance is casual. Speech is Appropriate. Mood is depressed. Affect is congruent. Thoughts are linear and logical. No evidence of psychosis. Client Response/Progress/Benefit: [] Pt was an active participant in group discussions and activities. Attentive during psychoeducation. Engaged during activity in which she identified which type of foods (i.e. carbs, sugar, salt, fast food, caffeine, etc) she seeks out when sad, tired, angry, rushed, anxious, etc. Pt was able to identify an unhealthy food cycle which include; daily routine of mom life --> reach for coffee ---> hungry, sad, still tired, anxious.. Pt was able to identify the impact that certain foods have on her mental health which was beneficial. Will continue in IOP to maintain safety, stabilize mood, increase healthy coping, and improve functioning. Narrative Note: []
--- NOTE | 2023-05-15 10:10 | BH.SGPN.GN ---
Behaviors/Verbalizations/Mental Status: [] Eye contact is good. Motor activity is appropriate. Appearance is casual. Speech is Appropriate. Mood is anxious. Affect is congruent. Thoughts are linear and logical. No evidence of psychosis. Client Response/Progress/Benefit: [] Pt was an active participant in group discussion. Attentive during psychoeducation on SMART goals. Participated in experiential activity. Engaged during interactive discussion on the benefits of setting goals which group identified as; increase self-worth, increase confidence, can motivate us, can lead to personal growth, and can give one a sense of purpose. Participated during interactive discussion on possible obstacles to obtaining goals which involved; little patience, low motivation, feeling burned out, setting unrealistic goals, limited time, stressors, other responsibilities, negative self-talk, doubt, cognitive distortions, lack of resources, and lack of focus. Benefited from increased understanding of benefits of goals, obstacles to obtaining goals, and methods for setting appropriate goals (SMART goals). Will continue in IOP to prevent decompensation, stablize mood, increase healthy coping, and improve funjctioning. Narrative Note: []
--- NOTE | 2023-05-15 11:15 | BH.SGPN.GN ---
Behaviors/Verbalizations/Mental Status: []Pt alert and oriented, casually dressed, appropriately groomed. Eye contact good. Motor activity appropriate. Speech within normal limits. Affect congruent, mood anxious and depressed. Thoughts linear, logical, no signs of hallucinations or delusions. Client Response/Progress/Benefit: []Pt was engaged during discussion and willing to complete the worksheet challenging them to develop a personal SMART goal. Pt chose the goal of saying 2 positive affirmations daily. Pt stated this will benefit them by making them feel more confident in their own self-worth and less stressed about needing things to be ?perfect?. Pt identified barriers which included negative thinking, distracted by caregiving obligations, and other?s opinions. Identified for negative thinking she will take a break and come back to it or challenge her negative thoughts. Pt receptive to identifying solutions for these barriers and willing to begin working on this goal. Benefited from this group by developing a short-term SMART goal related to mental health. Will continue IOP to increase healthy coping, improve consistent use of skills, and prevent decompensation. Narrative Note: []
--- NOTE | 2023-05-15 14:35 | BH.MDN_ITS ---
Multi-Disciplinary Note Note 45-min Individual: Time Started:: 09:10 Date: 05/15/23 Purpose of session/treatment goals addressed:: To address recent stressor reinforcing negative core beliefs and maintaining depression and anxiety sx. Eye Contact:: Good (tearful at times) Motor Activity:: Appropriate Appearance:: Casual Speech:: Appropriate Mood:: Anxious and Depressed Affect:: Congruent Thoughts:: Linear, Logical and No evidence of hallucinations/delusions noted Staff Interventions:: thought challenging, psychoeducation on: (core beliefs), CBT techniques, rapport building, strengths perspective and other (provided emotional support and validation) Client Response:: Pt responded well to session, open and engaged throughout. Pt reports she had a negative interaction over the weekend and has been struggling with rumination since. Described going to a friend?s pig roast over the weekend and receiving negative comments from a guest for allowing her daughter to watch a show on her phone to keep her calm while pt was eating. Pt shared initially trying to explain her decision to the women and then eventually walking away from the conversation after the women made several additional negative comments. Pt did well to recognize the women had only witnessed one interaction between she and her daughter and has no real understanding of pt?s parenting. Additionally recognized several pieces of evidence against the negative comments; however, shared struggling with rumination and anxiety that she is not doing enough despite rationally knowing she is a good mother. Reported seeking reassurance from her supports which was somewhat helpful however did not reduce the anxiety long-term. Receptive of psychoeducation on negative core beliefs and pt reported connecting with beliefs of ?my worth and security depend on the approval of others? and ?My worth is dependent on my performance or achievements.?. Shared this leads to pt creating unrealistic expectations of herself or going out of her way to do what she thinks or has been told she ?should be doing? in her role as a mother. Reported getting overwhelmed and depressed when she cannot then meet those expectations which then results in increased negative self-talk and feelings of hopelessness/worthlessness as a result. Shared she typically struggles to be fully present with her kids when at home as she puts pressure on herself to complete all the household tasks each day as well. Identified that her self-talk is often negative due to consistently feeling she is not doing enough or a ?good enough? parent. Receptive of discussion on lowering expectations and beginning to incorporate daily positive affirmations to reduce and replace negative/self- critical talk. Pt identified plans to start with 2 daily affirmations, as well as identify the ?can wait? household tasks to reduce unnecessary additional stress. Risks/Concerns:: Pt denies any suicidal ideations, plan, or intent as of 05/15/23. Pt denies HI. Pt is future oriented. Protective factors noted. Progress Toward Goals/Plan:: Progress limited as pt is still new to tx, third day in program. Pt reports continued struggles with anxious thoughts and negative self-talk; however has started implementing taking breaks, deep breathing, and thought challenging. Shared trying to communicate about her mental health difficulties with her supports as well which has been somewhat helpful. Shared she does not notice any changes since beginning psychiatric medication, however her partner has mentioned improved mood. Pt has successfully returned to working on weekends and shared that although this was difficult she was able to make it through the first weekend back. Continues to endorse irritability, anxiety with panic, ruminating thoughts, negative self?talk, crying spells, and depressed mood. Pt will continue IOP tx to prevent decompensation, improve daily functioning through thought challenging and consistent skill application, and increase ability to manage emotions. Time Stopped:: 09:54
--- NOTE | 2023-05-17 09:01 | BH.SGPN.GN ---
Behaviors/Verbalizations/Mental Status: [] Eye contact is fair. Motor activity is appropriate. Appearance is casual. Speech is Appropriate. Mood is anxious. Affect is congruent. Thoughts are linear and logical. No evidence of psychosis. Reviewed daily check in sheet and denies suicidal thoughts and intention. Client Response/Progress/Benefit: [] Pt participated when prompted. Attentive. Daily symptom tracker notes 35 for depression and 3/5 for anxiety. Pt reported mental health positive as doing her daily affirmations. Pt noted benefit from using affirmations. Pt stated a stressor the other day she tried to set up a kiddie pool, but did have the right tools to blow the pool up. Pt reported in the past she would have become irritable and short with her child, but in the moment used breathing skills and affirmations to help calm her down. Seemed to benefit from support from peers. Will continue in IOP to decrease anxiety, continue use of healthy coping skills, and prevent decompensation.
--- NOTE | 2023-05-17 10:10 | BH.SGPN.GN ---
Behaviors/Verbalizations/Mental Status: []Client alert and oriented, casually dressed and groomed. Eye contact good. Motor activity appropriate. Speech within normal limits. Affect congruent, mood dysthymic and anxious. Thoughts linear, logical, no signs of hallucinations or delusions. Client Response/Progress/Benefit: []Pt engaged in session AEB listening attentively to others and providing insight to group discussion. Pt engaged in activity, able to connect how it can be uncomfortable and difficult to accept when things are out of one?s own control. Pt worked with group to identify what things in life can be hard to accept. Group identified things hard to accept as: of a loved one, body image, loss of relationship, mental health diagnosis, other?s behaviors, and past decisions. Pt worked on identifying what personal things are hard to accept for themself, sharing struggling to meet her parenting expectations, giving up control, imperfection, and needing extra support from her partner are things pt struggles with accepting. Pt seemed to benefit from increased awareness of importance of acceptance. Pt to continue IOP to improve mood stability, increase positive self-talk, and prevent decompensation. Narrative Note: []
--- NOTE | 2023-05-17 11:10 | BH.SGPN.GN ---
Behaviors/Verbalizations/Mental Status: []Pt alert and oriented, neatly dressed and groomed. Eye contact good. Motor activity appropriate. Speech within normal limits. Affect congruent, mood anxious. Thoughts linear, logical, no signs of hallucinations or delusions. Client Response/Progress/Benefit: []Pt responded well to session AEB taking notes and contributing to discussion throughout. Pt engaged as group continued discussion on acceptance and the mental health benefits of practicing acceptance. Pt and peers identified what makes acceptance challenging and pt completed a self-reflection exercise on what is hard to accept in pt's life. Pt identified struggling to accept that I'm not a perfect parent and I lose patience. Group identified strategies to increase acceptance and pt shared wanting to focus on taking one day at a time instead of focusing on the big picture. Pt appeared to benefit from gaining insight and learning strategies to increase acceptance. Pt will continue IOP tx to prevent decompensation, improve daily functioning, and increase knowledge of healthy coping skills. Narrative Note: []
--- NOTE | 2023-05-17 12:05 | PCM.BH.PN_ITS ---
Progress Note Progress Note: History of Present Illness/Interim History: The patient is a 33-year-old female with a history of bipolar disorder, anxiety and PTSD who is 4 months and is being treated for worsening depression and severe anxiety. I last saw the patient 1 week ago and at that time the patient was started on Paxil 10 mg p.o. daily and Ativan 0.5 mg p.o. as needed up to twice a day for severe panic and anxiety. The patient is tolerating the Paxil well and has no side effects. She has only taken the Ativan 0.5 mg 2 times in the past week. The patient has been engaged in the treatment and has improved slightly overall. The patient states that she looks forward to coming to the [facility] and she she has a much better mindset when she leaves it at the end of the sessions. She said her anxiety is not much better but she is functioning slightly better at home. She has been able to leave her baby with her mother to come to [facility] and is comfortable doing this now which is a big improvement. The rest of her symptoms are essentially overall not much better. She still feels trapped in the house and has since significant worry about her new baby being with anyone but her and occasionally her mother now. She still having her prior symptoms of depression and anxiety. She states she still wants to disappear but denies thoughts of and states still that she does not want to because she does not want to leave her children. She denies suicidal ideation, plan for suicide, homicidal ideation, hallucinations or delusions. She denies any symptoms of yvrose or hypomania. She denies any panic attacks. Current Psychiatric Medications: [] Paxil 10 mg p.o. daily (x1 week); Ativan 0.5 mg p.o. as needed for severe anxiety up to twice a day Mental Status Examination: [] The patient is a 33-year-old female who appears normal for stated age and is casually dressed and groomed with good hygiene. She has no psychomotor agitation or retardation. She is cooperative and pleasant during the interview. Eye contact is good and speech is normal rate and rhythm and fluent with no pressure. Mood is depressed and anxious. Affect is constricted. Thought process is goal-directed and organized. Thought content: There is evidence of wanting to disappear but there is no evidence of passive thoughts of , plan for suicide, suicidal ideation, homicidal ideation, hallucinations or delusions. She remains worried about her 4-month-old daughter being away from her. Reality testing is intact. Intelligence is average or above. Judgment is intact. Insight fair and improving. Impulsivity is moderate. Diagnoses: [] 1. Major depressive disorder, recurrent, severe without psychosis 2. PTSD 3. Generalized anxiety disorder 4. Chronic fatigue syndrome 5. Primary support issues Plan: [] The patient will continue the IOP program in behavioral health at [facility] as the structure, support, education and group therapy will hopefully prevent worsening of the patient's symptoms which could require hospitalization. She felt safe during the interview and if it anytime she does not feel safe she will let us know or go to the emergency room. The risk, options, possible complications and side effects of the medications including flipping into yvrose or hypomania were discussed with the patient and she understands and accepts these. Patient does not have a definitive diagnosis of bipolar disorder but we are watching her closely. The patient agrees to increase her Paxil to 20 mg p.o. daily. No other medication changes were made. She will continue to follow-up with her outpatient providers and I will see the patient in follow-up in 2 weeks.
--- NOTE | 2023-05-22 09:00 | BH.SGPN.GN ---
Behaviors/Verbalizations/Mental Status: [] Eye contact is good. Motor activity is appropriate. Appearance is casual. Speech is Appropriate. Mood is euthymic. Affect is full. Thoughts are linear and logical. No evidence of psychosis. Reviewed daily check in sheet and no reports of suicidal ideations or intent Client Response/Progress/Benefit: [] Pt was an active participant in group discussion. Attentive. Daily symptom tracker notes 3/5 for anxiety and 2/5 for depression. Mental health wins include improved sleep and decreased anxiety. Shared anxiety over not having my baby within sight of me at all times which negatively impacted her mental wellness. Focused a great deal on self-care and me time over the weekend. Pt was able to read for the first time in awhile. She is utilizing skills and working through anxiety-provoking experiences. She shared a stressor related to family conflict which has caused pt to have feelings of guilt. Group empathized and provided feedback which was beneficial. Will continue in IOP to prevent decompensation, stabilize mood, and increase healthy coping skills. Narrative Note: []
--- NOTE | 2023-05-22 10:15 | BH.SGPN.GN ---
Behaviors/Verbalizations/Mental Status: []Pt alert and oriented,casually dressed and groomed. Eye contact good. Motor activity appropriate. Speech within normal limits. Affect congruent, mood depressed. Thoughts linear, logical, no signs of hallucinations or delusions. Client Response/Progress/Benefit: [] Pt was an active participant in group discussions and activities. Attentive during psychoeducation. Pt listened during interactive discussion in which the group defined self-care and discussed its benefits. ?Worked with peers in a small group to identify myths related to self-care which included; Self-care should only be done when ?you?re empty? and that not everyone deserves it. Pt participated in small groups where they worked to bust these self-care myths. Benefited from increased awareness of self-care, its benefits, and the consequences of not utilizing self-care strategies. Pt shared she struggles to practice self-care because she feels she must take care of others. Will continue IOP tx to prevent decompensation, improve mood stability, and reduce irritability. ? Narrative Note: []
--- NOTE | 2023-05-22 11:15 | BH.SGPN.GN ---
Behaviors/Verbalizations/Mental Status: []Pt alert and oriented, casually dressed and groomed. Eye contact good. Motor activity appropriate. Speech within normal limits. Affect congruent, mood euthymic. Thoughts linear, logical, no signs of hallucinations or delusions. Client Response/Progress/Benefit: [] Pt engaged participant AEB completing self-assessment worksheet and providing input throughout discussion. Participated in group discussion on the various areas of self-care. Pt completed worksheet identifying current self-care practices and what self-care activities pt wants to start using. Pt selected social self-care to begin practicing more consistently. Pt plans to do this by scheduling and sticking to a date night with her without kids. Appeared to benefit from completing the self-care evaluation and gaining insights into current self-care practices, as well as identifying areas in which pt would like to improve upon.? Pt will continue IOP tx to prevent decompensation, improve self-care practices, and improve emotional regulation skills. ? Narrative Note: []
== END 2023-05-22 23:59 ==
LOC: BHIOP 10:08
PROVIDERS: Referring Provider Psychiatry & Neurology Psychiatry; Visit Provider Psychiatry & Neurology Psychiatry
DX: F31.81 Bipolar II disorder (principal); F43.10 Post-traumatic stress disorder, unspecified; R53.82 Chronic fatigue, unspecified
CPT/HCPCS: 90792; 99213; H2012; H2020; S9480; T1002; 90834

== ENCOUNTER 2023-05-23 07:18 | Outpatient (RCR) | payer MEDICAID, SELFPAY ==
[2023-05-23 00:42] VITALS: BP 126/86; PULSE 69
--- NOTE | 2023-05-24 07:08 | BH.MDN_ITS ---
Multi-Disciplinary Note Note 45-min Individual: Time Started:: 10:35 Date: 05/24/23 Purpose of session/treatment goals addressed:: Purpose of session was to address tx plan goal #1 obj #2 and goal #2. Eye Contact:: Good Motor Activity:: Appropriate Appearance:: Neat and Casual Speech:: Appropriate Mood:: Euthymic and Anxious Affect:: Congruent Thoughts:: Linear, Logical and No evidence of hallucinations/delusions noted Staff Interventions:: thought challenging, CBT techniques, strengths perspective and taught coping skills (reviewed accomplishment log) Client Response:: Pt responded well to session, openly discussed current symptoms and stressors impacting mental health. Shared that she has seen progress since beginning the IOP program and feels overall her mood has improved, specifically reporting reduced depression and irritability sx. Pt shared transitioning her daughter from a cosleeping arrangement to the crib and feels this has aided in improving her mood as pt is now getting better sleep. Noted she had less anxiety about making the transition than she had thought, which pt attributes to medication as well as using skills she has learned in IOP tx, such as thought challenging and positive self-talk. Pt shared she has fo llowed through with her goal from last session to begin daily affirmations. Additionally, pt reports implementing more personal self-care time via reading one book a week and spending time doing more relaxing activities at home with her children. Pt has been able to successfully transition back to working weekends and is also challenging herself to leave the baby with a support for a few hours each day to aid in continuing to reduce her separation anxiety. Shared that this has been helpful and that her main stressor at this time is her [id number]?s upcoming visit. Pt plans to have her [id number] watch her daughter while she attends IOP tx to give her mom a break from babysitting. Pt reports trusting her [id number] but is very anxious about this as her [id number] has two of her own children. Reports anxiety about her dividing her attention while providing childcare. Pt did well to challenge her associated distortions with therapist and shared plans to spend time interacting with her daughter and fdquay-[id number] together prior to the scheduled babysitting days. Pt reports ongoing struggles with self-confidence and continuing to feel she is not doing enough as a mother or partner. With support pt was able to identify several things she does to provide care, support, and enjoyment to her family. Struggles in doing so on her own. Discussed concept of keeping an accomplishment log to identify things she deserves credit for daily. Pt agreeable to begin keeping an accomplishment journal. Risks/Concerns:: No risks or concerns noted at this time. Pt denies suicidal ideation, plan, or intent as of 05/24/23. Protective factors noted. Progress Toward Goals/Plan:: Progress noted. Pt reports improved ability to manage her anxiety and has been able to spend more time away from her daughter without panic. Pt reports she has been making progress in engaging in self-care and more openly discussing her mental health with her supports. Reports improved relationship with her partner as a result and discussed reduced irritability around him. Pt continues to endorse negative core beliefs, unreal istic expectations of herself, and daily anxiety impacting her mental health and ability to function at baseline. Pt will continue IOP tx to further improve anxiety management, promote mood stability, and prevent decompensation. Time Stopped:: 11:15
--- NOTE | 2023-05-24 09:03 | BH.SGPN.GN ---
Behaviors/Verbalizations/Mental Status: []Pt alert and oriented, casually dressed and groomed. Eye contact good. Motor activity appropriate. Speech within normal limits. Affect congruent, mood euthymic, anxious. Thoughts linear, logical, no signs of hallucinations or delusions. Reviewed pt?s symptom tracker, no reported suicidal ideation, denies plan, or active intent as of 05/24/23. Client Response/Progress/Benefit: []Pt responded well to session, open to processing with group and engaged. Pt reports feeling in the in between this morning. Current mental health wins identified as successfully transitioning her daughter to her own crib and being able to challenge her anxious thoughts throughout this transition. Additional win noted as allowing herself to have a ?stay at home day? rather than acting on her urges to distract from anxious thoughts and unnecessarily book her day. Discussed this was less uncomfortable than she had initially thought it might be. Current stressor noted as a recent trip to the [place] and struggling with managing her anxious thoughts of ?what if I lose one of the kids?. Did well to practice thought challenging and self-compassion in discussing this. Pt appeared to benefit from supportive feedback of the group, as well as reflecting on mental health wins. Pt will continue IOP tx to promote mood stability, encourage coping skill application, and prevent decompensation. Narrative Note: []
--- NOTE | 2023-05-24 11:10 | BH.SGPN.GN ---
Behaviors/Verbalizations/Mental Status: []Pt alert and oriented, neatly dressed and groomed. Eye contact good. Motor activity appropriate. Speech within normal limits. Affect congruent, mood euthymic. Thoughts linear, logical, no signs of hallucinations or delusions. Client Response/Progress/Benefit: []Pt responded well to session, taking notes and participating in worksheet discussion. Pt connected with the zones of action/change and that making sustainable change comes from stepping out of one?s comfort zone into the learning zone. Pt set a goal to gain control over pt?s difficulty with ?slowing down.? Pt reported plans to challenge self to take breaks and not be productive 2-3 times a week. Pt identified support pt will need as voicing her needs to family, a journal, and scheduling time. Appeared to benefit from identifying a small goal to benefit mental health. Will continue IOP tx to prevent decompensation, increase self-care practices, and improve daily functioning. Narrative Note: []
--- NOTE | 2023-05-29 09:01 | BH.SGPN.GN ---
Behaviors/Verbalizations/Mental Status: []Pt alert and oriented, casually dressed and groomed. Eye contact good. Motor activity appropriate. Speech within normal limits. Affect congruent, mood anxious but euthymic. Thoughts linear, logical, no signs of hallucinations or delusions. Reviewed pt?s symptom tracker, no suicidal ideation reported, denies plan, or active intent as of 05/29/23. Client Response/Progress/Benefit: []Pt responded well to session, open to processing with group and engaged. Pt reports feeling anxious this morning. Shared this is related to pt letting her partner?s sister watch her infant daughter for the first time while she is in group. Explained that she trusts her but that she has never let anyone outside of her mother and partner watch her daughter. Identified this as progress as pt has been working on using ERP to address her separation anxiety. Identified several grounding and mindfulness skills she plans on using today to manage her anxiety. Noted an additional win as using opposite action to go to work when she felt like calling off over the weekend. Shared that going in helped to remind her that she does actually enjoy her job and want to be there. Pt appeared to benefit from supportive feedback of the group, as well as reflecting on mental health wins. Pt will continue IOP tx to promote mood stability, improve self-compassion, and continue to improve functioning. Narrative Note: []
--- NOTE | 2023-05-29 11:15 | BH.SGPN.GN ---
Behaviors/Verbalizations/Mental Status: []Pt alert and oriented, neatly dressed and groomed. Eye contact good. Motor activity appropriate. Speech within normal limits. Affect congruent, mood euthymic. Thoughts linear, logical, no signs of hallucinations or delusions. Client Response/Progress/Benefit: []Pt was an active participant during activity and discussion AEB providing some input, connecting with peers, as well as taking notes throughout. Pt did well to engage as group worked on identifying characteristics and benefits of adopting a growth mindset. Worked with fellow participants in reframing the example fixed thoughts into growth mindset thoughts. Pt worked on changing own fixed thought of ?I?m not good enough? to growth thought of ?as long as I?m doing my best, I?m good enough.? Benefitted from discussing benefits of growth mindset and brainstorming strategies for prompting growth-mindset. Pt appeared to benefit from working in small groups to challenge own thoughts and help peers. Pt will continue IOP tx to reduce negative thinking patterns, improve daily functioning, and increase self-compassion. Narrative Note: []
--- NOTE | 2023-05-29 11:58 | BH.MDN ---
Multi-Disciplinary Note Note 60-min Individual: Time Started:: 10:30 Date: 05/29/23 Purpose of session/treatment goals addressed:: Purpose of session was to work on tx plan goal #2. Additional purpose was to review tx progress and identify tx goals moving forward. Eye Contact:: Good Motor Activity:: Appropriate Appearance:: Neat and Casual Speech:: Appropriate Mood:: Euthymic and Anxious Affect:: Congruent Thoughts:: Linear, Logical and No evidence of hallucinations/delusions noted Staff Interventions:: thought challenging, CBT techniques, mindfulness skills (to address anxiety regarding her daughters caregiving), strengths perspective, treatment planning and reviewed DSM-5 Client Response:: Pt receptive of meeting with therapist, open and engaged throughout. Discussed she is overall doing ?a lot better? and continues to feel her mood and ability to manage daily stressors has significantly improved. Discussed feeling more comfortable with ?down time? at home and can spend time with her children without feeling she needs to be cleaning or having an urge to leave the house in order to avoid potential anxious thoughts. Pt shared decreased irritability with her partner as well and shared she no longer feels like she is ?going to snap? when he is around. Shared improved intimacy and sense of connection in the relationship as well. Shared that she has also been able to release some control over her daughter?s nighttime feedings and allow her partner to take the 6 am shift for her. Pt reports she is continuing to read each day and would like to make further strides in prioritizing self-care. Shared insight that this would continue to set a healthy example for her children, as well as further improve pt?s mood stability and able to manage stressors. Pt reported wanting to get a hair cut but has not followed through due to not wanting to leave her daughter to do so. Shared that spending time away from her daughter continues to be her biggest struggle. Noted increased anxiety today as her partner?s sister is watching her children. Pt explained this is the first time someone who is not her mother or partner has provided childcare. Noted a desire to check on her daughter constantly but pt has been challenging herself to sit with the uncomfortable, take deep breaths, remind herself of the benefits of letting someone else provide care, and focus on being in the present moment. Shared this has been somewhat helpful. Pt did well to give herself credit for her progress and identified a goal to have her partner watch the children on Monday so she can make time to get a haircut. Expressed wanting to create a coping plan in next session for an upcoming memorial cookout honoring her father. Expressed anxiety about this as the first memorial cookout resulted in conflict between pt and her uncle. Plans to work on identifying potential triggers this week to address in next session. Risks/Concerns:: None noted. Pt denies any suicidal ideation, plan, or intent as of this date 05/29/23. Progress Toward Goals/Plan:: Progress noted. Pt reports as well as DSM-5 scores reflect a significant reduction in sx of anxiety, depression, and irritability. Pt is actively applying healthy coping skills and communicating with supports outside of the tx environment. Pt reports increased willingness to work on addressing separation anxiety with her daughter which is her primary stressor at this time. Has been actively engaging in daily positive affirmations, accomplishment journal, and taking small daily self-care breaks. Continues to struggle with intrusive thoughts and worry about being away from her daughter, unrealistic expectations of self which reinforce negative core beliefs, and self-doubt. Pt will continue IOP tx to further improve self-care and self-compassion, maintain mood stability, and prevent decompensation. Time Stopped:: 11:23
--- NOTE | 2023-05-29 14:18 | BH.MTP_ITS ---
Treatment Plan Review Demographics Date of Admission:: 05/09/23 Date of Treatment Plan Review:: 05/29/23 Admitting Diagnoses:: 1. Major depressive disorder, recurrent, severe without psychosis 2. PTSD 3. Generalized anxiety disorder 4. Chronic fatigue syndrome Current Diagnoses:: 1. Major depressive disorder, recurrent, severe without psychosis 2. PTSD 3. Generalized anxiety disorder 4. Chronic fatigue syndrome Patient Status Patient's Response to Treatment:: Pt has responded well to treatment AEB pt consistently attending IOP sessions and reduction of overall DSM-5 symptoms by 75% since admission. Pt contributes well during individual sessions and is actively engaged during group sessions, despite initial anxiety about the group environment. Pt applies coping skills outside of IOP, reports coming to terms and accepting the need for psychiatric medication and reports overall mood and functioning have significantly improved. Status of Current Problems and Symptoms: Pt's symptoms have resolved significantly since admission, but pt is gaining more willingness to begin entrusting others to care for her infant daughter which has been causing some i ncreased anxiety/stress. Pt is also anxious about an upcoming family get together honoring her father?s life. Pt shared that she is worried about her estranged uncle attending and becoming emotionally dysregulated as a result. Pt can continue to work on combatting distortions, improving self-compassion, improving use of in the moment anxiety management skills, and increasing boundary setting skills while combating guilt. Progress Problem #1: Problem Name:: Depression, worthlessness, negative core beliefs Status of Goals:: Objective 1- in progress. Pt has seen a 75% reduction in symptoms of depression since admission. She reports making more of an effort to prioritize self-care and has been engaging in hobbies and interests. Shared that transitioning her daughter to a crib has aided in improving sleep as well which has helped to improve her overall mood stability too. Objective 2 ? Pt is consistently saying 2-3 positive affirmations a day and has been making strides in catching and replacing negative self-talk messages. Continues to struggle with unrealistic expectations and self-comparison which pt reports she would like to continue to work on. Problem #2: Problem Name:: Anxiety, intrusive thoughts, panic Status of Goals:: Objective 1-complete with ongoing work encouraged. Pt?s DSM-5 scores for anxiety have decreased by 50% since admission and pt reports increasing confidence in her ability to challenge thoughts and manage physical symptoms. Pt continues to struggle with significant anxiety and distorted thoughts surrounding separation from her daughter. Reports wanting to continue to focus on improving her ability to challenge anxious thoughts causing pt to avoid spending time away from her daughter. Objective 2- in progress. Pt is actively working with therapist on better identifying warning signs and triggers for her anxiety. She is able to identify several coping skills and is working to more consistently utilize these when noticing sx of anxiety.
--- NOTE | 2023-05-31 10:00 | BH.SGPN.GN ---
Behaviors/Verbalizations/Mental Status: [] Eye contact is good. Motor activity is appropriate. Appearance is casual. Speech is Appropriate. Mood is anxious. Affect is congruent. Thoughts are linear and logical. No evidence of psychosis. Reviewed daily check in sheet and no reports of suicidal ideations or intent. Client Response/Progress/Benefit: [] Pt was an active participant in group discussion. Attentive. Daily symptom tracker notes 2/5 for anxiety and irritability. Emotion for today is annoyed. Overall reports that her functioning and mood are better. She shared that last evening she made some progress in challenging a cognitive distortion (absolute thinking, shoulds) regarding cleaning. She typically places unrealistic expectations on herself regarding tasks If I start something I have to complete it all or I'm a failure. Would often develop whole days to cleaning or preparing for something. Discussed how this thinking negative impacted her mental health and relationships. She also a significant stressor regarding an upcoming family event and set boundaries with certain family members. This has been very difficult as these family members are reaching out and say not so nice things to her. Group provided support,encouragement, and feedback which was helpful. Pt able to identify progress regarding thought challenging and boundary setting. Will continue in IOP to prevent decompensation, decrease anxiety, and improve functioning. Narrative Note: []
--- NOTE | 2023-05-31 10:15 | BH.SGPN.GN ---
Behaviors/Verbalizations/Mental Status: []Pt alert and oriented, neatly dressed and groomed. Eye contact good. Motor activity appropriate. Speech within normal limits. Affect congruent, mood euthymic. Thoughts linear, logical, no signs of hallucinations or delusions. Client Response/Progress/Benefit: [] Pt receptive to session AEB contributing to discussion, as well listening attentively to others, and taking notes. Worked with group to brainstorm the positive and negative aspects of stress on physical and mental health. Group did well to identify the benefits of stress as well as the impact of distress on performance, relationships, and mental health. Pt identified their personal top stressors as: family/kids, the dangers of the world, mental health, and the of her dad. ?Pt seemed to benefit from increased awareness of current stressors and impact stress has on mental health. Recommended to continue IOP tx to promote mood stability, reduce negative thinking patterns, and improve emotional regulation skills. Narrative Note: []
--- NOTE | 2023-05-31 11:15 | BH.SGPN.GN ---
Behaviors/Verbalizations/Mental Status: [] Eye contact is good. Motor activity is appropriate. Appearance is casual. Speech is Appropriate. Mood is anxious and content. Affect is congruent. Thoughts are linear and logical. No evidence of psychosis. Client Response/Progress/Benefit: []Pt was an active participant in group discussions and experiential activity. Attentive during psychoeducation on the 4 A's (Avoid, adapt, alter, accept) of coping with stress as well as strategies to identify stressors in which one has no control, little control, or a great deal of control over. Shared that she would benefit most from working on accept in regards to coping with family members outside of her immediate household. Shared reminding herself it's okay to say no to an event to avoid unhealthy people. Was able to identify the connection between the experimental activity and utilization of stress management skills. Benefited from increased awareness of stress management strategies. Will continue in IOP to maintain progress, prevent decompensation, and to increase healthy coping skill application. Narrative Note: []
--- NOTE | 2023-06-05 09:10 | BH.SGPN.GN ---
Behaviors/Verbalizations/Mental Status: [] Client Response/Progress/Benefit: [] Pt was an active participant in group discussion. Attentive. Emotion for today is content. She reported certain events yesterday that sent me into a spiral leading to numerous negative automatic thoughts I'm a bad mom and ruminations. Shared that her anxiety and stress were significant. Towards the end of the day she was able to utilize CBT and calming skills to help her reframe and challenge her negative automatic thoughts. This helped regulate her emotions. Group empathized and also offered feedback and suggestions to challenge her thoughts. Group also normalized anxiety and stress in the situation which was beneficial. Group discussion on the benefits of anxiety and how it can help motivate change as pt was able to identify aspects from the stressful events to learn from and make changes in family routines. Insight into when anxiety stops being beneficial and leads to decompensation and ruminations. Progress noted per pt report as she is learning and utilizing skills to prevent further decompensation as the event yesterday could have significantly impacted her for several days/weeks rather than just hours. Will continue in IOP to prevent decompensation, stabilize mood, and improve functioning. Narrative Note: []
--- NOTE | 2023-06-05 10:20 | BH.SGPN.GN ---
Behaviors/Verbalizations/Mental Status: []Pt alert and oriented, neatly dressed and groomed. Eye contact good. Motor activity appropriate. Speech within normal limits. Affect congruent, mood euthymic. Thoughts linear, logical, no signs of hallucinations or delusions. Client Response/Progress/Benefit: []Pt participated in group discussions. Attentive during psychoeducation on stages of change. Participated during experiential activity. Interactive group discussion on why change is difficult in which group verbalized that change involves the unknown, is scary, leads to uncertainly, makes one feel vulnerable, leads to fear of failure, and triggers the pressure of success. However, pt acknowledged that change also brings growth and increases motivation. Benefited from increased awareness of stages of changes and how emotions impact change. Will continue in IOP to promote gains, further combat distorted thinking, and improve daily functioning. Narrative Note: []
--- NOTE | 2023-06-05 11:20 | BH.SGPN.GN ---
Behaviors/Verbalizations/Mental Status: []Pt alert and oriented, casually dressed and groomed. Eye contact good. Motor activity appropriate. Speech within normal limits. Affect congruent, mood anxious and content. Thoughts linear, logical, no signs of hallucinations or delusions. Client Response/Progress/Benefit: []Pt responded well to session, attentive. Did well to process activity and work with group to relate the strategies used to overcome barriers in the activity to managing change in own life. Pt identified wanting to work on improving her confidence in her own decision-making abilities. Pt is anxious about other?s opinions/criticism of her decisions and second-guessing herself. Shared following through with this change will improve confidence and reduce self-criticism. Pt?s goal today is to write out why she is making this change for herself. Pt will continue IOP tx to further improve stress management skills, promote continued communication and boundary setting with supports, and improve self-confidence. Narrative Note: []
--- NOTE | 2023-06-07 10:10 | BH.SGPN.GN ---
Behaviors/Verbalizations/Mental Status: [] Client alert and oriented, casually dressed and groomed. Eye contact good. Motor activity appropriate. Speech within normal limits. Affect congruent, mood euthymic, positive. Thoughts linear, logical, no signs of hallucinations or delusions. Client Response/Progress/Benefit: []Client was an active participant in activity and taking notes during group discussion. Attentive during psychoeducation on coping skills, why people use unhealthy coping skills, and how to replace unhealthy coping skills. Group came up with list of negative coping skills that included substance use, avoidance, lashing out, and escaping from reality. Group discussed the effects of how negative coping skills can impact mental health in a negative way. Benefited from increased understanding of unhealthy coping skills and the need for developing healthy internal and external coping skills. client will continue IOP tx to continue use of healthy coping, improve anxious management skills, and prevent decompensation.
--- NOTE | 2023-06-08 11:15 | BH.SGPN.GN ---
Behaviors/Verbalizations/Mental Status: [] Client alert and oriented, neatly dressed and groomed. Eye contact good. Motor activity appropriate. Speech within normal limits. Affect congruent, mood anxious and euthymic. Thoughts linear, logical, no signs of hallucinations or delusions. Client Response/Progress/Benefit: [] Client responded well to session AEB taking notes and providing input and examples throughout. Group discussed the different categories of coping skills which included distraction, emotional release, grounding, self-love, and thought challenging. Client created a coping skill menu identifying various skills to try in each category. Client?s coping skill menu included: reaching out to a support, meditation, deep breathing, montoya mind, and utilizing an accomplishment log. Appeared to benefit from increasing repertoire of healthy coping skills. Client will continue IOP tx to continue to improve daily functioning, reduce thought patterns that lead to anxiety and increase skills application. Narrative Note: []
--- NOTE | 2023-06-08 14:15 | BH.MDN ---
Multi-Disciplinary Note Note 45-min Individual: Time Started:: 09:22 Date: 06/07/23 Purpose of session/treatment goals addressed:: Purpose of session was to work on tx plan goal #1. Additional purpose was to discuss barriers impacting consistency of pt self-care routine. Eye Contact:: Good Motor Activity:: Appropriate Appearance:: Casual Speech:: Appropriate Mood:: Euthymic and Anxious Affect:: Congruent Thoughts:: Linear, Logical and No evidence of hallucinations/delusions noted Staff Interventions:: motivational interviewing, CBT techniques, strengths perspective and goal setting Client Response:: Pt receptive of meeting with therapist, open and engaged throughout. Discussed she is overall doing well but has recently been struggling with difficulties sleeping. Described experiencing a recurring nightmare in which some steals her child. Shared that this has led to pt watching the baby monitor until she falls asleep. Explained she however does not go into her daughter?s room as she does not want to wake her. Able to recognize this is a safety behavior and is ultimately maintaining her anxiety. Responded well to reviewing different calming skill she could use to manage her anxiety when experiencing a distressing dream. Pt went on to share that her partner has been sleeping in her son?s bed as her son has been sleeping in the room with her. Shared this has disrupted her nighttime routine and prevented pt from being able to read for self-care at night. Indicated that her children do not really have a structured bedtime routine which has increased the stress at night and has impeded pt?s ability to consistently practice self-care. Able to discuss potential mental health benefits for herself and her children of working towards developing a more consistent routine. Identified a goal of setting a consistent laydown time for her son as 8pm and indicated plans to work on getting him back into his own room so her sleep is less likely to be disrupted, as well as to provide more opportunity for pt to read prior to bed. Shared this would also allow pt?s partner to return to the room as well. Reported plans to discuss this with her partner this afternoon to ensure they are on the same page and can both work on improving the consistency of bedtime routine. Risks/Concerns:: None noted. Pt denies any suicidal ideation, plan, or intent as of this date 06/07/23. Progress Toward Goals/Plan:: Progress variable. Pt reports ongoing progress with improved mood and ability to manage her anxiety. However, reports a reduction in self-care activities over the past week due to unexpected changes in sleep schedule/routine. Receptive of working to identify strategies to address this barrier. Continues to report reduction in depression, irritability, and panic, as well as improvements in communication with supports, setting healthy boundaries, and ability to manage stressors. Pt discussed feeling more confident and optimistic about returning to work as well. Would benefit from ongoing work on negative core beliefs, use of reassurance seeking, and improving consistent application of healthy coping skills. Time Stopped:: 10:02
--- NOTE | 2023-06-12 09:05 | BH.SGPN.GN ---
Behaviors/Verbalizations/Mental Status: [] Eye contact is good. Motor activity is appropriate. Appearance is casual. Speech is Appropriate. Mood is euthymic. Affect is full. Thoughts are linear and logical. No evidence of psychosis. Reviewed daily check in sheet and no reports of suicidal ideations or intent. Client Response/Progress/Benefit: [] Pt participated at times during the group discussion. Attentive. Daily symptom tracker notes 10/27 for anxiety. Mental health wins over the weekend included putting a schedule in place regarding discipline and bed time routine for her children. Last week reported significant anxiety, rumination, and negative self-talk regarding regarding lack of routine which was impacting her mental health. She utilized her anxiety to take action and implement plan rather than ruminate and she is seeing the benefits. Pt shared that 06/13 will be her last day in IOP. Shared her progress in the program noting significant decrease in anxiety, improved self-care, and decreased stress. Emotion for today is hopeful. Progress noted per pt report as she is utilizing skills and reports decreased anxiety. Benefited from group support, encouragement, and feedback. Will continue in IOP to maintain gains. Narrative Note: []
--- NOTE | 2023-06-12 11:15 | BH.SGPN.GN ---
Behaviors/Verbalizations/Mental Status: []Pt alert and oriented, neatly dressed and groomed. Eye contact good. Motor activity appropriate. Speech within normal limits. Affect congruent, mood euthymic. Thoughts linear, logical, no signs of hallucinations or delusions. Client Response/Progress/Benefit: []Pt was attentive and contributed to small group discussion. Pt completed strengths exploration worksheet, identifying kindness as the strength pt feels has helped pt most in their mental health recovery. Pt stated they have been using self-compassion to challenge negative self-talk and this has been helpful. Pt worked with group to identify strategies that can help increase utilization of personal strengths and how to challenge one?s perspective in general. Pt identified wanting to work on continuing to use self-compassion to help challenge perspective. Benefited from identifying personal strengths and strategies for enhancing use of identified strengths. Pt to continue IOP tx for one more day to reinforce healthy coping skills and provide closure. Narrative Note: []
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
--- NOTE | 2023-06-14 10:10 | BH.SGPN.GN ---
Behaviors/Mental Status: [] Eye contact is good. Motor activity is appropriate. Appearance is casual. Speech is Appropriate. Mood is euthymic, positive. Affect is full. Thoughts are linear and logical. No evidence of psychosis. Client Response/Progress/Benefit: [] Pt active participant AEB providing contributions throughout discussions and listened attentively to others. Participated in and was engaged during experiential activity. Engaged during interactive discussion on what failure means to the group in which peers identified that failure is ... not meeting expectations, not having a desired outcome, and not succeeding in a task. Group was able to identify impact of fear of failure. Client stated fear of failure leads her to quit doing a task that is challenging and letting someone else do the task. Attentive during interactive discussion on the role that FOF plays in mental wellness, depression, anxiety, and growth. Benefited from increased awareness of how the role that FOF plays in mental health and decision-making. Pt has made significant treatment progress and will discharge from IOP to day.
--- NOTE | 2023-06-14 11:10 | BH.SGPN.GN ---
Behaviors/Verbalizations/Mental Status: []Pt alert and oriented, casually dressed and groomed. Eye contact good. Motor activity appropriate. Speech within normal limits. Affect congruent, mood depressed, agitated. Thoughts linear, logical, no signs of hallucinations or delusions. Client Response/Progress/Benefit: [] Pt responded well to session, engaged in the experiential activity and attentive throughout group processing. Pt reported fear of failure has kept Pt from being herself. Pt completed fear of failure worksheet and was able to identify thoughts and behaviors that reinforce personal fear of failure including: all or nothing thinking, social media, and comparisons. Pt participated in group discussion regarding strategies to overcome fear of failure. Identified wanting to work on starting to improve self-compassion. Appeared to benefit from increased knowledge of strategies to combat fear of failure and gaining self-awareness. Pt will d/c from tx today and continue with outpatient counseling services. Narrative Note: []
--- NOTE | 2023-06-14 12:03 | PCM.BH.PN_ITS ---
Progress Note Progress Note: And history of Present Illness/Interim History: The patient is a 33-year-old female with a history of depression, anxiety and PTSD who is seen in follow-up at the [facility] behavioral health IOP program. I last saw the patient 1 month ago and the patient states that she feels she has learned valuable skills in the IOP program. This is her last day in the program and she feels she is a lot better. Her anxiety is decreased immensely and is much more manageable now. Depression is much improved also and she denies hopelessness, worthlessness and denies feeling trapped. She still has occasional guilt but is learning to cope with this with skill she is learning in the program. She no longer is afraid to leave her daughter with other caretakers and her daughter is doing well and is almost 6 months old. The patient denies passive thoughts of , thoughts of self-harm, active or passive suicidal ideation, plan for suicide, hallucinations, delusions or any symptoms of yvrose. She is having panic attacks less than 1 time a week and is able to cope with these using skills learned in the program. She is little concerned that the anniversary of her father's is next week but she feels that she is able to handle this. Current Psychiatric Medications: [] Paxil 20 mg p.o. daily (dose increased about 1 month ago). Not requiring any Ativan. Mental Status Examination: [] Patient is a 33-year-old female who appears normal for stated age and is casually dressed and groomed with good hygiene. She is ambulatory with a normal gait and has no psychomotor agitation or retardation. She is cooperative and pleasant during the interview. Eye contact is good and speech is normal rate rhythm and fluent with no pressure. Mood is mildly anxious. Affect is full and normal. Thought process is goal-directed and organized. Thought content: Patient is hopeful for the future. There is no evidence of passive thoughts of , suicidal ideation, plan for suicide, homicidal ideation, hallucinations or delusions. Reality testing is intact. Intelligence is average or above. Judgment is intact. Impulsivity is low. Insight is good. Diagnoses: [] 1. Major depressive disorder, recurrent, severe without psychosis (resolving) 2. PTSD 3. Generalized anxiety disorder 4. Primary support issues Plan: [] The patient will be discharged from the IOP program today. She felt safe during the interview and if it anytime she does not feel safe she will let us know or go to the emergency room. No medication changes were made today and refills were given on her Paxil 20 mg p.o. daily. She will continue to follow- up with her outpatient providers.
--- NOTE | 2023-06-14 14:17 | BH.IGGP_ITS ---
Aftercare Plan Demographics Treatment End Date:: 06/14/23 Psychiatrist:: Consuelo Woodward Psychiatrist Office #:: [phone] [facility]/IOP Therapist:: Carole Quezada Therapist Phone #:: [phone] Medications Home Medications lorazepam 0.5 mg tablet 0.5 mg PO BID PRN anxiety 15 days #30 tabs 05/10/23 paroxetine HCl 20 mg tablet (Paxil) 20 mg PO DAILY 30 days #30 tabs 05/17/23 Plan Details Progress/Aftercare Plan Details:: Pt has responded well to treatment as evidenced by Pt consistently attending IOP sessions, reduction of DSM-5 scores since admission, and self-report. Pt was always attentive and receptive to learning during group and individual sessions. Pt actively applied coping skills outside of IOP setting and reports overall her mood is improved and she is functioning better than she was several months ago. Reports she no longer has overwhelming irritability, is less anxious about spending time away from her nicole ghter and is able to feel hopeful and excited for her future. Pt?s overall symptom reduction is 87% since admission with irritability sx decreasing by 75%, depression decreasing by 75%, and anxiety decreasing by 87.5%. Pt reports she has increased self-confidence in her ability to set healthy boundaries, manage stressors, regulate her emotions, and challenge unrealistic expectations of herself. Strategies for Success:: 1. Opposite action! Continue to break that cycle of anxiety and depression by getting up and getting going. 2. Remember that thoughts are thoughts NOT facts! You have power to choose if you give thoughts the time of day or not. 3. self-care! You deserve to take time for you and you also deserve to face the not so fun self-care 4. Self-compassion! You are human and you will make a mistake?BUT that doesn?t mean you are a failure or not good enough. Give yourself credit for all the wonderful things you do. 5. continue with your bedtime routine to unwind 6. Practice deep breathing, calming self- talk, and positive affirmations 7. Practice positive self-talk and keep track of your wins. 8. Remember progress isn?t linear! You may have a setback or bump in the road, but that doesn?t mean you?ve lost all progress. 9. Continue to communicate and challenge negative self-talk 10. Let yourself continue to engage in things that you love outside of parenting! Appointments Appointments/Referrals to Other Services:: Pt will discharge from [facility] tx today and is scheduled to begin the [facility] Aftercare Program on 06/29/23. Pt is currently deciding on an outpatient counselor from a list of local agencies and will contact to establish care this week. Scheduled for intake assessment with Dr. Weems for medication management July 27 as well.
--- NOTE | 2023-06-14 15:00 | BH.MDN ---
Multi-Disciplinary Note Note 45-min Individual: Time Started:: 09:20 Date: 06/14/23 Purpose of session/treatment goals addressed:: To address current stressors and aid pt in identifying strategies to help cope with these stressors. Another goal was to review tx progress, as well as discuss discharge and aftercare. Eye Contact:: Good Motor Activity:: Appropriate Appearance:: Casual Speech:: Appropriate Mood:: Euthymic and Anxious Affect:: Full Thoughts:: Linear, Logical and No evidence of hallucinations/delusions noted Staff Interventions:: motivational interviewing, discharge planning, strengths perspective, reviewed DSM-5 and other (emotional support) Client Response:: Pt responded well to session, open to meeting with therapist. Pt was tearful at times throughout session and indicated this is in part due to the upcoming anniversary of her father?s , as well as anxiety about discharging from the IOP program. Pt discussed struggling to accept that her 5 month old daughter will never meet pt?s father and shared she has avoided taking her daughter to his grave out of fear she will become to emotionally overwhelmed. Therapist provided validation and worked with pt to process these emotions. Pt shared plans to get [employer] with her kids on the anniversary date as this was something her father enjoyed doing. Discussed wanting to take her children to visit his grave at that time as well but is nervous about doing so. Pt receptive of reviewing strategies for healthy expression and management of her emotions to help support her in successfully doing so. Went on to discuss skills pt can utilize to maintain the progress she has made throughout IOP tx. Pt discussed continuing to prioritize self-care, maintain a consistent routine with her children, and communicate regularly and openly with her partner. Pt shared feeling more confident in her ability to manage her anxiety, improved self-confidence, reduced depression and irritability, as well as improved comfort in reaching out to her supports and advocating for her needs. Discussed plans to continue with consistent outpatient counseling and psychiatry services as she would like to maintain the progress she has made. Scheduled for an initial assessment with Dr. Weems on July 27 and is in the process of choosing an outpatient counselor from a list of local in-network providers provided. Risks/Concerns:: No report of active suicidal ideations, plan, or intent as of this date 06/14/23. Progress Toward Goals/Plan:: Pt has made significant progress in IOP. Pt?s overall symptom reduction is 87% since admission with irritability symptoms decreasing by 75%, depression decreasing by 75%, and anxiety decreasing by 42%. Pt has increased self-confidence in her ability to manage stressors, emotions, and conflict. Pt can continue to benefit from weekly counseling to process family relationship stressors, past trauma, and stress associated with parenting. Pt will discharge from [facility] tx today and is scheduled to begin the [facility] Aftercare Program on 06/29/23. Scheduled for intake assessment with Dr. Weems for medication management on 07/27/23 as well. Time Stopped:: 10:00
== END 2023-06-14 12:47 | disposition home or self-care (01) ==
LOC: BHIOP 07:18
PROVIDERS: Referring Provider Psychiatry & Neurology Psychiatry; Visit Provider Psychiatry & Neurology Psychiatry
DX: F33.2 Major depressive disorder, recurrent severe without psychotic features (principal); F43.10 Post-traumatic stress disorder, unspecified; R53.82 Chronic fatigue, unspecified; F41.1 Generalized anxiety disorder
CPT/HCPCS: 99213; H2012; H2020; S9480; 90834; 90837

== ENCOUNTER 2023-06-29 08:00 | Outpatient (RCR) | payer MEDICAID, SELFPAY | END 2023-07-06 14:09 | disposition home or self-care (01) | LOC: BHOG 08:00 | PROVIDERS: Referring Provider Psychiatry & Neurology Psychiatry; Visit Provider Psychiatry & Neurology Psychiatry | DX: F33.2 Major depressive disorder, recurrent severe without psychotic features (principal); F43.10 Post-traumatic stress disorder, unspecified; F41.1 Generalized anxiety disorder ==

== ENCOUNTER 2024-05-03 16:45 | Outpatient (CLI) | payer MEDICAID, SELFPAY ==
[2024-05-03 16:56] VITALS: BMI 28.1
[2024-05-03 17:06] VITALS: BP 107/63; PULSE 93; RESP 18; TEMP 36.1; O2SAT 97
--- NOTE | 2024-05-04 18:15 | OB.TRI.NOTE ---
HPI - General HPI Narrative NISHA FISHER, is a 34 F who presents for concerns decreased movement. 31w3d . PFSH PFSH Medical History Generalized anxiety disorder PTSD (post-traumatic stress disorder) Major depressive disorder, recurrent severe without psychotic features Laceration, obstetrical, first degree (spontaneous vaginal delivery) Anemia affecting Home Medications ?Medication ?Instructions ?Recorded ?Last Taken ?Type sertraline 50 mg tablet 50 mg PO DAILY #30 tabs 05/02/24 05/02/24 Rx Allergy/AdvReac Type Severity Reaction Status Date / Time No Known Allergies Allergy Verified 05/03/24 16:59 Family History Father Cancer Diabetes Alcoholism Grandmother Diabetes Heart disease Social History Smoking Status: Former smoker Electronic Cigarette Use: not used alcohol intake: current alcohol intake frequency: holidays/special occasions only substance use type: does not use History Elective abortions Hx Para 1 Spontaneous abortions Hx # Term Pregnancies Ectopic pregnancies Hx # Pregnancies Multiple births # of living children NST FHR Rate Baby A Baseline: 135 Variability:: Moderate Decelerations:: None NST Reactive:: Yes Uterine Activity:: Irregular and mild to palpation. Assessment & Plan (1) Decreased movement: (2) 31 weeks gestation of : PLAN: Plan 1) Reactive NST, good movement now 2) D/C home
== END 2024-05-03 17:29 | disposition home or self-care (01) ==
LOC: WPOUT 16:53 → WP 16:53
PROVIDERS: Referring Provider Advanced Practice Midwife; Visit Provider Advanced Practice Midwife
DX: O36.8130 Decreased fetal movements, third trimester, not applicable or unspecified (principal); Z3A.31 31 weeks gestation of pregnancy; O99.343 Other mental disorders complicating pregnancy, third trimester; F41.1 Generalized anxiety disorder; F43.10 Post-traumatic stress disorder, unspecified
CPT/HCPCS: 59025; 59050; 99221; G0378

== ENCOUNTER 2024-06-21 19:10 | Inpatient (IN) | payer MEDICAID, SELFPAY ==
[2024-06-21] VITALS (48 sets, daily range): BP systolic 82–156; BP diastolic 50–89; PULSE 80–108; RESP 15–18; TEMP 36.5–36.7; O2SAT 90–100; BMI 29.2
--- NOTE | 2024-06-21 18:58 | PCM.HP.OB ---
HPI - General HPI Narrative NISHA FISHER, is a 34 F at 38.2 weeks gestation who presents with spontaneous onset of labor. She reports continued contractions for the past couple of days and mucous bloody show. Patient very tearful. Requesting epidural. Maternal Data Information ROLF Calculator Estimated Delivery Date Method Current WG Current Estimate 07/02/24 Manual 38w 3d PFSH PFSH Medical History Generalized anxiety disorder PTSD (post-traumatic stress disorder) Major depressive disorder, recurrent severe without psychotic features Laceration, obstetrical, first degree (spontaneous vaginal delivery) Anemia affecting Home Medications ?Medication ?Instructions ?Recorded ?Last Taken ?Type sertraline 50 mg tablet 50 mg PO DAILY #30 tabs 05/02/24 05/02/24 Rx Allergy/AdvReac Type Severity Reaction Status Date / Time No Known Allergies Allergy Verified 05/03/24 16:59 Family History Father Cancer Diabetes Alcoholism Grandmother Diabetes Heart disease Social History Smoking Status: Former smoker Electronic Cigarette Use: not used alcohol intake: current alcohol intake frequency: holidays/special occasions only substance use type: does not use History Elective abortions Hx Para 1 Spontaneous abortions Hx # Term Pregnancies Ectopic pregnancies Hx # Pregnancies Multiple births # of living children NST FHR Rate Baby A Baseline: 140 Variability:: Moderate Accelerations:: 15 x 15 Decelerations:: None NST Reactive:: Yes FHR Category:: Category I Uterine Activity:: TOCO reading every 2-3 minutes ROS Eyes Eyes: Denies blurry vision, change in vision or spots in vision ENT HEENT: Denies dizziness or headache(s) Cardiovascular Cardiovascular: Denies abdominal pain, chest pain or dyspnea Respiratory/Chest Respiratory/Chest: Denies cough, dyspnea, shortness of breath at rest or shortness of breath with exertion Gastrointestinal Gastrointestinal: Denies abdominal pain, diarrhea or vomiting Genitourinary Genitourinary: Denies change in urinary stream, difficulty urinating or dysuria Musculoskeletal Musculoskeletal: Reports none Integumentary Integumentary: Denies rash Neurologic Neurologic: Denies dizziness, headache(s), memory loss or weakness Psychiatric Psychiatric: Reports none Vital Signs Vital Signs Vital Signs: 06/21/24 18:09 06/21/24 18:09 06/21/24 18:09 Temperature Temperature Source Pulse Rate 107 H Respiratory Rate Blood Pressure 106/71 BP Systolic 106 BP Diastolic 71 Pulse Ox 98 06/21/24 18:10 06/21/24 18:10 06/21/24 18:10 Temperature Temperature Source Tympanic Pulse Rate Respiratory Rate 15 Blood Pressure BP Systolic BP Diastolic Pulse Ox 99 06/21/24 18:10 Temperature 98.1 F Temperature Source Pulse Rate Respiratory Rate Blood Pressure BP Systolic BP Diastolic Pulse Ox Weight Weight: 176 lb Body Mass Index (BMI) 29.2 Physical Exam Const alert, oriented x3 and no apparent distress General Appearance: cooperative Orientation / Consciousness: awake Exam Limitations: no limitations HEENT normocephalic Head and Scalp: normal to inspection Eyes General Eye: normal appearance of both eyes Neck full ROM and no lymphadenopathy Lymph Lymphatic: no lymphadenopathy noted Chest inspection of chest normal Resp normal respiratory effort, normal air movement and clear to auscultation bilaterally Effort and Inspection: able to speak in complete sentences and symmetric chest movement Cardio regular rate and regular rhythm GI normal to inspection, nondistended, normoactive bowel sounds Manual OB Exam: presentation cephalic, dilated 4, effaced 80 and station 0 Amniotic Fluid: clear amniotic fluid Back/Spine normal ROM Extremity full ROM and no calf tenderness Skin no rashes or lesions noted General Skin Exam: no breakdown Neuro oriented x3 and CN's II-XII intact bilaterally Psych mental status grossly normal and thought process normal Labs Labs Labs: Blood Type O POSITIVE Antibody Screen NEGATIVE Hct 30.4 % (37-47) L Hgb 10.7 g/dL (12.0-15.0) L Syphilis Total Ab Non-reactive GBS negative Assessment & Plan (1) Generalized anxiety disorder: (2) PTSD (post-traumatic stress disorder): (3) Major depressive disorder, recurrent severe without psychotic features: (4) 38 weeks gestation of : (5) Spontaneous onset of labor: PLAN: Plan CE 4.5cm/80/-1 Admit to labor and delivery Routine labs Start IV and run fluids per orders GBS negative Start Pitocin IV 2 mu/min and increase per policy Epidural when indicated Anticipate Dr. Dyer notified of admission and is collaborating physician
[2024-06-21] MEDS: Lactated Ringers 1,000 ML 999 ML IV (19:40)
[2024-06-21 19:57] LABS: Absolute Lymphocyte Count 2.23 X10^3/uL (0.83-4.51); Absolute Neutrophil Count 11.1 X10^3/uL (2.0-7.7); Basophil# 0.03 X10^3/uL; Basophil% 0.2 % (0-1); Eosinophil# 0.04 X10^3/uL; Eosinophils% 0.3 % (0-5); Hematocrit 32.2 % (37-47); Hemoglobin 11.2 g/dL (12.0-15.0); Lymphocyte # 2.23 X10^3/ul (0.83-4.51); Lymphocyte % 15.5 % (19-41); Mean Corp Hgb Conc 34.8 g/dL (32-36); Mean Corpuscular Hgb 31.4 pg (27.0-32.0); Mean Corpuscular Volume 90.2 fL (81-99); Mean Platelet Vol. 10.3 fl (6.2-12.0); Monocyte# 0.84 X10^3/uL; Monocyte% 5.8 % (0-10); NRBC Flagged by Analyzer 0 % (0-5); Neutrophil # 11.05 X10^3/uL (2.7-7.7); Neutrophil % 76.5 % (47-70); Platelet Count 244 K/mm3 (150-450); RBC Distribution Width CV 13.3 % (11.6-14.6); RBC Distribution Width SD 43.7 fl (35.1-43.9); Red Blood Count 3.57 M/mm3 (4.2-5.4); White Blood Count 14.4 K/mm3 (4.4-11.0)
[2024-06-21] MEDS: fentaNYL-bupivacaine (epidural) 100 ML BAG EPIDURAL (20:23)
[2024-06-21 20:31] LABS: Syphilis Antibodies Non-reactive
[2024-06-21] MEDS: Lactated Ringers 1,000 ML 200 ML IV (20:42)
[2024-06-21] MEDS: LACTATED RINGERS 500 ML 999 ML IV (21:22)
[2024-06-21] MEDS: Oxytocin 15 Units/NS 250ml 15 UNITS/250 ML IV.SOLN 334 UNITS IV (22:19)
--- NOTE | 2024-06-21 22:28 | EX.PCM.OBRPT ---
Assessment & Plan (1) Generalized anxiety disorder: (2) PTSD (post-traumatic stress disorder): (3) Major depressive disorder, recurrent severe without psychotic features: (4) (spontaneous vaginal delivery): Maternal Data Information ROLF Calculator Estimated Delivery Date Method Current WG Current Estimate 07/02/24 Manual 38w 3d Vaginal Delivery Maternal Presentation Maternal Presentation: Spontaneous onset of labor Type of Induction: Amniotomy (Augmentation) Operative Information Date of Procedure: 06/21/24 Pre-Operative Diagnosis: Term gestation, spontaneous labor Post-Operative Diagnosis: , Live male infant Surgery / Procedure Performed: Spontaneous Vaginal Delivery Type of Anesthesia: Epidural Estimated Blood Loss: 200 Time of Delivery: 22:18 Findings Description of Procedure: Patient progressed to complete dilation. With good maternal effort, head delivered followed by anterior shoulder and remainder of infant body without any force, delay or traction. Vigorous { male } was delivered atraumatically and placed on maternal abdomen. Pitocin IV started for active management of the third stage of labor. 3 vessel cord clamped and cut after delay and infant placed immediately skin to skin with patient. Cord blood collected and sent. Placenta delivered spontaneously and intact. After inspection, it was noted there were no vaginal or perineal lacerations. Vaginal sweep performed. Fundus is firm and bleeding hemostatic. Patient and bonding well at this time. { Gomez } notified of delivery. Routine post orders placed. Presentation: Vertex Amniotic Membrane Rupture Type: Artificial Time of Membrane Rupture: 2143 Amniotic Fluid Description: Bloody Placental Delivery Description: Spontaneous Placenta Disposition: [facility] Cord Vessel Description: 3 Vessels Cord Entanglement: None A Gender: Male (1 minute): 9 (5 minute): 9 Delayed Cord Clamping: Yes Post Vaginal Delivery Medications Given After Delivery: IV Pitocin Episiotomy Description: None Laceration: None Complication Complications: None
[2024-06-21] MEDS: Oxytocin 15 Units/NS 250ml 15 UNITS/250 ML IV.SOLN 83 UNITS IV (22:50)
[2024-06-22] VITALS (9 sets, daily range): BP systolic 96–114; BP diastolic 66–76; PULSE 75–102; RESP 14–17; TEMP 36.2–36.6; O2SAT 97–98
[2024-06-22] MEDS: Acetaminophen 500 MG Tablet 1000 MG PO (04:10)
[2024-06-22] MEDS: Naproxen 500 MG Tablet PO (08:12)
--- NOTE | 2024-06-22 08:16 | PN.OBGYN_ITS ---
Subjective Subjective Patient seen at bedside. Denies any pain. Ambulating and voiding without difficulty. Lochia decreasing. Objective Data Objective Data Vital Signs: Vital Signs Temp Pulse Resp BP Pulse Ox O2 Del Method 97.9 F 77 16 107/76 98 Room Air 06/22/24 08:04 06/22/24 08:04 06/22/24 08:04 06/22/24 08:04 06/22/24 08:04 06/22/24 08:04 Oxygen Delivery Method Room Air Weight: 176 lb Body Mass Index (BMI) 29.2 Intake & Output: Intake and Output for Last 24 Hours 06/20/24 06/21/24 06/22/24 23:59 23:59 23:59 Intake Total 1994.90 / 1994. 250 / 250 Output Total 450 / 450 900 / 900 Balance 1545.90 / 1545.90 -650 / -650 Lab / Micro Data Attestation: I reviewed the patient's lab results. 06/21/24 19:40 Labs: Laboratory Results - last 24 hr 06/21/24 19:40: WBC 14.4 H, RBC 3.57 L, Hgb 11.2 L, Hct 32.2 L, MCV 90.2, MCH 31.4, MCHC 34.8, RDW Std Deviation 43.7, RDW Coeff of Bob 13.3, Plt Count 244, MPV 10.3, Immature Gran % (Auto) 1.700 H, Neut % (Auto) 76.5 H, Lymph % (Auto) 15.5 L, Marshall % (Auto) 5.8, Eos % (Auto) 0.3, Baso % (Auto) 0.2, Absolute Neuts (auto) 11.1 H, Absolute Lymphs (auto) 2.23, Nucleated RBC % 0, Syphilis Total Ab Non-reactive, Blood Type O POSITIVE, Antibody Screen NEGATIVE ROS Eyes Eyes: Denies blurry vision, change in vision or spots in vision ENT HEENT: Denies dizziness or headache(s) Cardiovascular Cardiovascular: Denies abdominal pain, chest pain or dyspnea Respiratory/Chest Respiratory/Chest: Denies cough, dyspnea, shortness of breath at rest or shortness of breath with exertion Gastrointestinal Gastrointestinal: Denies abdominal pain, diarrhea or vomiting Genitourinary Genitourinary: Denies change in urinary stream, difficulty urinating or dysuria Musculoskeletal Musculoskeletal: Reports none Integumentary Integumentary: Denies rash Neurologic Neurologic: Denies dizziness, headache(s), memory loss or weakness Physical Exam Const alert and no apparent distress General Appearance: cooperative and comfortable Exam Limitations: no limitations HEENT normocephalic Eyes General Eye: normal appearance of both eyes Neck full ROM General: normal visual inspection Chest Chest: symmetrical chest wall rise Resp normal respiratory effort and normal air movement Effort and Inspection: symmetric chest movement Auscultation: clear to auscultation bilaterally Cardio regular rate and regular rhythm GI normal to inspection, nondistended, normoactive bowel sounds Back/Spine normal ROM Extremity full ROM and no calf tenderness General Extremity: normal exam except as noted Skin no rashes or lesions noted Neuro oriented x3 Speech: speech normal Psych mental status grossly normal Thought Process: normal thought process Assessment & Plan (1) (spontaneous vaginal delivery): (2) Generalized anxiety disorder: (3) PTSD (post-traumatic stress disorder): (4) Major depressive disorder, recurrent severe without psychotic features: (5) Care and examination of lactating mother: PLAN: Plan PPD 1 Routine care support Anticipate discharge home tomorrow
--- NOTE | 2024-06-22 08:18 | PCM.DC ---
Discharge Instructions Diet Discharge Diet: No restrictions Activity Discharge Activity: Return to Normal Activity, No Restrictions, May Drive, May Shower and May Take a Tub Bath (Warm water only. No bath salts, soaps, bubbles) May resume sexual activity in: 6-8 weeks Weight Bearing Status: Weight bearing as tolerated Dressing / Incision Call your doctor if you observe: Fever of 101 or Higher, Inability to urinate, Using more than 1 pad per hour, Shortness of breath, Dizziness, Chest pain, Calf discomfort and Uncontrolled pain Follow Up Care Please Follow Up With: [facility] Gabrielle WOODS When: 2 weeks in office or virtual Test Results: Test results from this visit will be discussed in further detail at your follow-up appointment, if applicable. Discharge Plan Admission Admit Date/Time: 06/21/24 19:10 Primary Reason for Your Visit: Labor and Delivery Attending Provider: Rin Solares Primary Care Provider: Care Physician,Gayla Primary Discharge Orders/Prescriptions Prescriptions: Continued sertraline 50 mg tablet 50 mg PO DAILY Qty: 30 2RF PNV cmb#95-ferrous fumarate-FA [] 28 mg iron- 800 mcg tablet 1 tab PO DAILY Referrals / Follow Up: Care Physician,No Primary [Primary Care Provider] - Disposition Disposition (needs filled in before D/C Order can be placed): Home, Self Care
[2024-06-23 01:45] VITALS: BP 100/73; PULSE 72; RESP 14; TEMP 36.3; O2SAT 100
[2024-06-23 08:47] VITALS: BP 106/72; PULSE 70; RESP 17; TEMP 36.4; O2SAT 99
--- NOTE | 2024-06-23 08:58 | PCM.DC.SUM ---
Providers Date of Admission: 06/21/24 Primary Care Physician: No Primary Care Phys Reason For Visit: VAG Diagnosis Discharge Diagnosis (1) (spontaneous vaginal delivery): Status: Acute Code(s): O80 - Encounter for full-term uncomplicated delivery (2) Generalized anxiety disorder: Status: Acute Code(s): F41.1 - Generalized anxiety disorder (3) PTSD (post-traumatic stress disorder): Status: Acute Code(s): F43.10 - Post-traumatic stress disorder, unspecified (4) Major depressive disorder, recurrent severe without psychotic features: Status: Acute Code(s): F33.2 - Major depressive disorder, recurrent severe without psychotic features (5) Care and examination of lactating mother: Status: Acute Code(s): Z39.1 - Encounter for care and examination of lactating mother Plan PPD 2 Routine care support Anticipate discharge home tomorrow Medications at Discharge Home Medications sertraline 50 mg tablet 50 mg PO DAILY depression #30 tabs 05/02/24 vit no.95-ferrous fumarate 28 mg-folic acid 800 mcg tablet () 1 tab PO DAILY supplement 06/21/24 Hospital Course Operations None Procedures None Summary of Care Provided Minutes Spent on Discharge: 15 Hospital Course: Patient had vaginal delivery. Hospital course was uneventful. Physical Exam Narrative Patient seen at bedside. Denies pain. Ambulating and voiding without difficulty. Lochia decreased. Desires discharge home today. Const alert and oriented x3 General Appearance: Negative for in distress HEENT normocephalic Eyes General Eye: normal appearance of both eyes Neck General: normal visual inspection Chest Chest: symmetrical chest wall rise Resp normal respiratory effort and normal air movement Effort and Inspection: symmetric chest movement; Negative for tachypneic Auscultation: clear to auscultation bilaterally Cardio regular rate and regular rhythm Peripheral Pulses: pulses 2+ throughout GI normal to inspection, nondistended, normoactive bowel sounds Narrative: Ice to perineum OB / External & Speculum: vaginal bleeding and other Lochia decreasing Uterus Palpation: uterus fundus firm (Below U) Extremity normal to inspection, full ROM and normal capillary refill Skin no rashes or lesions noted Neuro oriented x3, CN's II-XII intact bilaterally and gait normal Psych mental status grossly normal, thought process normal and activity/motor behavior normal Weight / BMI Weight Weight: 176 lb Body Mass Index (BMI) 29.2 ABG / Lab / Microbiology Data 06/21/24 19:40 D/C Instructions Discharge Diet: No restrictions Discharge Activity: Return to Normal Activity, No Restrictions, May Drive, May Shower and May Take a Tub Bath (Warm water only. No bath salts, soaps, bubbles) May resume sexual activity in: 6-8 weeks Weight Bearing Status: Weight bearing as tolerated Call your doctor if you observe: Fever of 101 or Higher, Inability to urinate, Using more than 1 pad per hour, Shortness of breath, Dizziness, Chest pain, Calf discomfort and Uncontrolled pain Please Follow Up With: [facility] [place] Gabrielle WOODS When: 2 weeks in office or virtual Meaningful Use Info Meaningful Use Meaningful Use Diagnoses (Choose all that apply): None applicable Ischemic Stroke Statin Dosing Therapy Reference: STATIN DOSE THERAPY REFERENCE: * Patients > 75 years receive moderate or high dose statin therapy. * Patients 75 years or YOUNGER should receive HIGH intensity statin dose unless contraindicated. You will be required to document reason for non-treatment if statin daily dose does not meet guidelines. HIGH DOSE STATIN THERAPY DAILY Atorvastatin > than or = to 40 mg Rosuvastatin > than or = to 20 mg Amlodipine + Atorvastatin > than or = to 2.5/40 mg Ezetimibe + Simvastatin 10/80 mg Simvastatin 80mg Discharge Plan Admission Admit Date/Time: 06/21/24 19:10 Primary Reason for Your Visit: Labor and Delivery Attending Provider: Rin Solares Primary Care Provider: Care Physician,No Primary Discharge Orders/Prescriptions Prescriptions: Continued sertraline 50 mg tablet 50 mg PO DAILY Qty: 30 2RF PNV cmb#95-ferrous fumarate-FA [] 28 mg iron- 800 mcg tablet 1 tab PO DAILY Referrals / Follow Up: Care Physician,No Primary [Primary Care Provider] - Disposition Disposition (needs filled in before D/C Order can be placed): Home, Self Care
--- NOTE | 2024-06-23 11:10 | CASEMGMT ---
Social Work Assessment Labor and Delivery Unit Patient Address: [address] [place] [address] [address], [place] [id number] Phone number: Date of Referral: 06/21/24 Time of Referral: 19:38 Referred By: Rin Solares Date of Intervention: 06/23/2024 Time of Intervention: 11:12 Reason for Referral: Mental Health History obtained from: Medical records and mother of baby (MOB), Alana Meier. Household composition: MOB, MOB?s fianc?/father of baby (FOB) Bart Escobar, age 26, MOB?s 6 year old son Maxwell Meier, MOB and FOB?s 1.5 year old daughter Xochitl Escobar and son Raymundo, born on 06/21/24. Patient's parent/guardian status: MOB and FOB have been together for 4 years and are engaged to be . Both are actively involved and will be providing care for baby. MOB denied any concerns with domestic violence and described a positive and supportive relationship with FOB. Medical History: FAYE has had 3 pregnancies and 3 births. MOB received routine care through [facility] beginning at 8 weeks and 1 day. MOB had a vaginal delivery.? Apgars: 9 and 9. Weight: 8 pounds, 2 ounces. Pipe Blanks Cut Off Saw Operator: Dr. Cony Cortes. FAYE is . MOB reported it is her plan to discuss a tubal ligation at her 2 week visit. Educational Status: MOB denied any issues or concerns with reading or writing with herself or the FOB. MOB and FOB are both high school graduates. ? Financial Status: MOB reported that the household income is sufficient to meet the needs of her family at this time. MOB reported she used to be employed however quit her job once she became and has plans to be a stay at home mom. 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 ? Supplies: FAYE reported she has all the supplies she needs for baby at this time including but not limited to: Car Seat, bassinet, pack-n-play, crib, diapers, bottles, breast pump and clothing. Childcare/Caregiver(s):? MOB identified herself as the primary caregiver with the FOB assisting when home. Transportation:? MOB reported both she and the FOB are both licensed drivers and have a reliable vehicle to take baby to and from all medical appointments. No transportation issues identified. Programs/Agencies Involved: FAYE reported she is currently receiving Medicaid and [employer] [place]. MOB reported previous WIC involvement with [facility] however denied a current need or desire to get re-connected at this time. MOB was previously involved in counseling through [facility] in [place] however stopped during COV when everything went virtual. MOB has not had a desire to get re-connected with counseling at this time. Children Services/Legal Issues:? Denied. Behavioral Health Issues: ??Mental Health History: FAYE has a history of Anxiety, Major Depressive Disorder and Post-Traumatic Stress Disorder (PTSD). MOB reported her symptoms are currently being effectively managed at this time. MOB reported seeing psychiatrist Dr. Weems at [facility] once every 6 weeks which MOB described as very helpful. MOB reported she?s currently on medication and has her next follow up visit scheduled for the end of June. ?MOB denied any suicidal ideation. MOB denied any mental health issues with the FOB. ?Substance Use History:? FAYE denied any drug or alcohol abuse with herself or the FOB. FAYE reported that prior to her she should would drink modestly on holiday?s or special occasions. ?Family History: MOB denied any mental health issues on either her side of the family or the FOB however FAYE reported that her father was an alcoholic and in 2019 due to Cirrhosis of the liver and cancer. MOB also described FOB?s parents as ?heavy drinkers? and ?bar people at night and on the week-ends?. FAYE denied that the FOB?s parents will ever provide childcare for her children. ?Drug Screens: ?None obtained at the time of this admission. ? Family/Social Stressors: ?MOB denied any current family or social stressors. Support Systems: Ample.? FAYE identified her biggest supports as her mother as well as FOB?s mother. FAYE also described her sister as a big support who lives close by. Depression/Shaken Baby/Safe Sleeping: pest control worker provided verbal and written education on PPD, Safe Sleeping and Shaken Baby. MOB verbalized an understanding. ??? ASSESSMENT:? FAYE provided consent to social work visit. Upon arrival, FAYE was sitting upright in her hospital bed and was at bedside in the hospital crib under the bili lights. FAYE was alone however was expecting family to start to arrive, including the FOB. MOB presented with a bright affect and was very engaged/talkative throughout the assessment. MOB reported feeling safe at home and denied any domestic violence, untreated mental health issues or drug or alcohol abuse. MOB reports? mental health is being managed and MOB feels comfortable getting re-connected with counseling in the future if needed.? Safe Plan of Care for infant related to substance use: N/A; not needed. ? PLAN:? Baby to be discharged home when ready.? pest control worker also provided written information on depression, depression resources and Help Me Grow as additional resources offered by clinical social work aide which MOB accepted. No other services requested or indicated. Cynthia Camacho, SUPERVISOR LEAD BURNING, BELLOWS CHARGER ASSEMBLER
[2024-06-23 14:17] VITALS: BP 99/74; PULSE 84; RESP 18; TEMP 36.1; O2SAT 98
[2024-06-26 05:22] VITALS: BP 131/83; PULSE 95; O2SAT 100
[2024-06-26 05:27] VITALS: PULSE 94; O2SAT 100
--- NOTE | 2024-07-02 11:59 | NURSING ---
Follow up phone call made, no answer, voicemail left
== END 2024-06-23 17:50 | disposition home or self-care (01) | DRG 560 ==
LOC: WPOUT 19:12 → WP 19:12
PROVIDERS: Admitting Provider Advanced Practice Midwife; Referring Provider Advanced Practice Midwife; Visit Provider Advanced Practice Midwife
DX: O99.344 Other mental disorders complicating childbirth (principal); Z37.0 Single live birth; F33.2 Major depressive disorder, recurrent severe without psychotic features; F41.1 Generalized anxiety disorder; F43.10 Post-traumatic stress disorder, unspecified; Z87.891 Personal history of nicotine dependence; Z3A.38 38 weeks gestation of pregnancy
CPT/HCPCS: 59025; 59050; 85025; 86780; 86850; 86900; 86901; 99221; J7120; G0378